=== PATIENT | female | born 1975 | race Caucasian/White ===

== ENCOUNTER 2016-07-03 12:31 | Emergency (ER) | payer MEDICAID ==
[2016-07-03] MEDS ORDERED: IPRATROPIUM/ALBUTEROL 3 ML DEYVIAL IH ONE ×2 (12:50→13:30)
[2016-07-03 12:59] LABS: % IMMATURE GRANULYOCYTES 0.4 % (0.0-1.1); ABSOLUTE IMMATURE GRANULOCYTES 0.04 10^3/uL (0.00-0.10); ADD DIFF? NO; ADD MORPH? NO; ADD SCAN? NO; ATYPICAL LYMPHOCYTE FLAG 0 (0-99); FRAGMENT RBC FLAG 0 (0-99); HEMATOCRIT 42.2 % (38.0-47.0); HEMOGLOBIN 13.8 g/dL (12.6-16.3); LEFT SHIFT FLG 0 (0-99); LIPEMIA HEMOLYSIS FLAG 80 (0-99); MEAN CELL HEMOGLOBIN 27.9 pg (27.9-34.1); MEAN CELL HEMOGLOBIN CONCENTR. 32.7 g/dL (32.4-36.7); MEAN CELL VOLUME 85.3 fL (81.5-99.8); MEAN PLATELET VOLUME 8.7 fL (8.7-11.7); PLATELET CLUMPS FLAG 20 (0-99); PLATELET COUNT 407 10^3/uL (150-400); RED BLOOD CELL COUNT 4.95 10^6/uL (4.18-5.33); RED CELL DISTRIBUTION WIDTH 16.3 % (11.5-15.2)
[2016-07-03 13:08] LABS: ANION GAP 10 mEq/L (8-16); CALCIUM 9.4 mg/dL (8.5-10.4); CARBON DIOXIDE 23 mEq/l (22-31); CHLORIDE 108 mEq/L (97-110); CREATININE 0.7 mg/dL (0.6-1.0); GLOMERULAR FILTRATION RATE > 60; GLUCOSE 98 mg/dL (70-100); POTASSIUM 3.9 mEq/L (3.5-5.2); SODIUM 141 mEq/L (134-144)
--- NOTE | 2016-07-03 13:27 | EDPHY ---
H & P Stated Complaint: SOB, Chest pain -3x days. Recent Diagnosis COPD Time Seen by Provider: 07/03/16 13:23 HPI/ROS: CHIEF COMPLAINT: Chest pain, shortness of breath, cough. HISTORY OF PRESENT ILLNESS: The patient is a 41-year-old female recently diagnosed with COPD who presents with chest pain and shortness of breath since last night. The shortness of breath is worsened with exertion and she is having difficulty walking short distances. She admits associated dry cough. She denies fever, nausea, abdominal pain. She denies lightheadedness, dizziness, or fainting. Patient states that she no longer has any of her medications that she was given for her COPD. She reports that she was diagnosed with COPD in [facility]. She had the same symptoms at that time. REVIEW OF SYSTEMS: Aside from elements discussed in the HPI, a comprehensive 10-point review of systems was reviewed and is negative. PAST MEDICAL HISTORY: Schizoaffective disorder, bipolar disorder, COPD. SOCIAL HISTORY: Here alone. VITAL SIGNS: Reviewed by me GENERAL: Well-developed, well-nourished, resting comfortably in no respiratory distress. HEENT: Atraumatic. Eyes: No icterus, no injection. Mouth: moist mucous membranes. No erythema or lesions. Neck: supple with no adenopathy. LUNGS: Hacking, wet cough. Wheezing throughout. No rhonchi or rales. CARDIAC: Regular rate and rhythm, no rubs, murmurs or gallops. ABDOMEN: Soft, nontender, nondistended, bowel sounds normal. BACK: No CVA tenderness. EXTREMITIES: No trauma. No edema. Range of motion is normal throughout. NEURO: Alert and oriented, grossly nonfocal. SKIN: Warm and dry, no rash. PSYCHIATRIC: Normal mentation, no agitation. Portions of this note were transcribed by a medical assistant supervisor. I personally performed a history, physical exam, medical decision making, and confirmed accuracy of information the transcribed note. Source: Patient Exam Limitations: No limitations - Personal History LMP (Females 10-55): Now Current Tetanus Diphtheria and Acellular Pertussis (TDAP): Yes Tetanus Vaccine Date: <10 years - Medical/Surgical History Hx Asthma: No Hx Chronic Respiratory Disease: Yes Hx Diabetes: No Hx Cardiac Disease: Yes Hx Renal Disease: No Hx Cirrhosis: No Hx Alcoholism: No Hx HIV/AIDS: No Hx Splenectomy or Spleen Trauma: No Other PMH: PMHx: Schizoaffective disorder, anxiety, depression, polysubstance abuse, PTSD, bipolar disorder, back problem, palpitations - Social History Smoking Status: Current every day smoker Constitutional: Initial Vital Signs Temperature (C) 36.6 C 07/03/16 12:37 Heart Rate 113 H 07/03/16 12:37 Respiratory Rate 20 07/03/16 12:37 Blood Pressure 121/94 H 07/03/16 12:37 O2 Sat (%) 94 07/03/16 12:37 O2 Delivery Mode Room Air Allergies/Adverse Reactions: prochlorperazine edisylate [From Compazine] Allergy (Intermediate, Verified 18:36) prochlorperazine maleate [From Compazine] Allergy (Intermediate, Verified 18:36) promethazine HCl [From Phenergan] Allergy (Intermediate, Verified 06/21/16 18:36 ) Home Medications: Medication Instructions Recorded LORazepam [Ativan (*)] 0.5 mg PO Q4 PRN 04/21/16 QUEtiapine FUMARATE [Seroquel 300 mg PO BID 04/21/16 300mg (*)] traZODone [traZODONE 50MG (*)] 50 mg PO BID 04/21/16 AZITHROMYCIN [Z-PACK] 250 - 500 mg PO DAILY #6 tab 07/03/16 Albuterol Hfa Anes Only [Proair 2 puffs IH QID #1 mdi 07/03/16 Hfa Anes Only] predniSONE [prednisone 10mg (RX)] 40 mg PO DAILY 3 Days 07/03/16 Medical Decision Making - Diagnostics Imaging: X-ray chest was obtained. I viewed the images myself on the PACS system. My interpretation of the images is: Query posterior infiltrate. The radiologist interpretation is pending at this time. I discussed the x-ray findings with the patient. ED Course/Re-evaluation: Chest x-ray and EKG ordered. An IV was established. 3ml IH DuoNeb administered. Patient's chest x-rays evaluated by the radiologist as demonstrating no focal infiltrate. Patient received a DuoNeb followed by 2 albuterol nebulizer treatments. She received Solu-Medrol 125 mg. On re-examination she is feeling better. She is moving better air and her wheezes have diminished. She is not hypoxic. Her O2 sat has tip slightly from initial arrival, presumably secondary to recent nebulizer treatments. She will be discharged with azithromycin, prednisone, and meter dose inhaler prescription. She understands the importance of compliance with this medication regiment and will follow up at [facility] as needed. Differential Diagnosis: Differential diagnosis for the patient's shortness of breath was considered including but not limited to pulmonary infectious processes, COPD exacerbation, pulmonary emboli, pulmonary edema, and influenza. - Data Points Laboratory Results: Laboratory Results 07/03/16 12:48 07/03/16 12:48 07/03/16 12:48 WBC 10.98 H 10^3/uL (3.80-9.50) RBC 4.95 10^6/uL (4.18-5.33) Hgb 13.8 g/dL (12.6-16.3) Hct 42.2 % (38.0-47.0) MCV 85.3 fL (81.5-99.8) MCH 27.9 pg (27.9-34.1) MCHC 32.7 g/dL (32.4-36.7) RDW 16.3 H % (11.5-15.2) Plt Count 407 H 10^3/uL (150-400) MPV 8.7 fL (8.7-11.7) Neut % (Auto) 71.9 % (39.3-74.2) Lymph % (Auto) 17.9 % (15.0-45.0) [place] % (Auto) 8.1 % (4.5-13.0) Eos % (Auto) 0.8 % (0.6-7.6) Baso % (Auto) 0.9 % (0.3-1.7) Nucleat RBC Rel Count 0.0 % (0.0-0.2) Absolute Neuts (auto) 7.89 H 10^3/uL (1.70-6.50) Absolute Lymphs (auto) 1.97 10^3/uL (1.00-3.00) Absolute Monos (auto) 0.89 H 10^3/uL (0.30-0.80) Absolute Eos (auto) 0.09 10^3/uL (0.03-0.40) Absolute Basos (auto) 0.10 10^3/uL (0.02-0.10) Absolute Nucleated RBC 0.00 10^3/uL (0-0.01) Immature Gran % 0.4 % (0.0-1.1) Immature Gran # 0.04 10^3/uL (0.00-0.10) D-Dimer < 0.27 ug/mLFEU (0.00-0.50) Sodium 141 mEq/L (134-144) Potassium 3.9 mEq/L (3.5-5.2) Chloride 108 mEq/L (97-110) Carbon Dioxide 23 mEq/l (22-31) Anion Gap 10 mEq/L (8-16) BUN 6 L mg/dL (7-23) Creatinine 0.7 mg/dL (0.6-1.0) Estimated GFR > 60 Glucose 98 mg/dL (70-100) Calcium 9.4 mg/dL (8.5-10.4) Medications Given: Discontinued Medications Albuterol (Proventil Neb) 3 ml IH EDNOW ONE Stop: 07/03/16 13:32 Last Admin: 07/03/16 13:42 Dose: Not Given Albuterol (Proventil Neb) 3 ml IH EDNOW ONE Stop: 07/03/16 13:32 Last Admin: 07/03/16 13:42 Dose: Not Given Albuterol/Ipratropium (Duoneb) 3 ml IH EDNOW ONE Stop: 07/03/16 12:51 Last Admin: 07/03/16 13:00 Dose: 3 ml Albuterol/Ipratropium (Duoneb) 6 ml IH EDNOW ONE Stop: 07/03/16 13:31 Last Admin: 07/03/16 13:48 Dose: 6 ml Methylprednisolone Sodium Succinate (Solu-Medrol) 125 mg IVP EDNOW ONE Stop: 07/03/16 13:32 Last Admin: 07/03/16 13:48 Dose: 125 mg Departure - Departure Disposition: Home, Routine, Self-Care Clinical Impression: Asthma exacerbation, Bronchitis Condition: Good Instructions: Acute Bronchitis (ED) Additional Instructions: Take Azithromycin and Prednisone as prescribed. Follow up with your primary care provider in the next 2-3 days if symptoms are not improving. Return to the emergency department if you experience serious worsening of condition. Referrals: Viky Ramsey PA [Primary Care Provider] - As per Instructions Prescriptions: Albuterol Hfa Anes Only [Proair Hfa Anes Only] 2 puffs IH QID #1 mdi AZITHROMYCIN [Z-PACK] 250 - 500 mg PO DAILY #6 tab predniSONE [prednisone 10mg (RX)] 40 mg PO DAILY 3 Days Report Scribed for: Moira Perry Report Scribed by: Jani Evans Date of Report: 07/03/16 Time of Report: 13:27
[2016-07-03] MEDS ORDERED: ALBUTEROL 3 ML DEYVIAL IH ONE ×2 (13:31)
[2016-07-03] MEDS ORDERED: methylPREDNISolone SOD SUCC 125 MG/2 ML VIAL IVP ONE (13:31)
--- NOTE | 2016-07-03 13:37 | DX ---
PA and Lateral Chest - July 03, 2016 Clinical Indications: Shortness of breath. July 03, 2016 at 1248 hours. Comparison: June 21, 2016. Findings: The lungs are clear, and no masses are found. The heart and pulmonary vessels are normal. There are no pleural effusions and no pneumothorax. The bones are unremarkable for this age. Impression: No acute cardiopulmonary process.
[2016-07-03 13:50] VITALS: RESP 16
[2016-07-03 15:19] VITALS: BP 121/77; PULSE 107; TEMP 98.8; O2SAT 90
--- NOTE | 2016-07-05 07:34 | CPEKG ---
Heart Rate: 111 RR Interval: 541 P-R Interval: 132 QRSD Interval: 68 QT Interval: 336 QTC Interval: 457 P Allgood: 80 QRS Allgood: 68 T Wave Allgood: 74 EKG Severity - OTHERWISE NORMAL ECG - EKG Impression: SINUS TACHYCARDIA Electronically Signed By: Ming Gonzalez 05-Jul-2016 21:10:15
== END 2016-07-03 15:19 | disposition home or self-care (01) ==
DX: J20.9 Acute bronchitis, unspecified (principal); J45.901 Unspecified asthma with (acute) exacerbation; J44.9 Chronic obstructive pulmonary disease, unspecified; F17.200 Nicotine dependence, unspecified, uncomplicated
CPT/HCPCS: 96374

== ENCOUNTER 2016-08-21 21:22 | Emergency (ER) | payer MEDICAID ==
[2016-08-21] MEDS ORDERED: LORazepam 2 MG/ML INJ ONE (21:29)
[2016-08-21] MEDS ORDERED: LORazepam 2 MG/ML INJ IVP ONE ×2 (21:34→22:13)
[2016-08-21 22:15] LABS: % IMMATURE GRANULYOCYTES 0.4 % (0.0-1.1); ABSOLUTE IMMATURE GRANULOCYTES 0.03 10^3/uL (0.00-0.10); ADD DIFF? NO; ADD MORPH? NO; ADD SCAN? NO; ATYPICAL LYMPHOCYTE FLAG 10 (0-99); FRAGMENT RBC FLAG 0 (0-99); HEMATOCRIT 38.4 % (38.0-47.0); HEMOGLOBIN 12.9 g/dL (12.6-16.3); LEFT SHIFT FLG 0 (0-99); LIPEMIA HEMOLYSIS FLAG 80 (0-99); MEAN CELL HEMOGLOBIN 28.4 pg (27.9-34.1); MEAN CELL HEMOGLOBIN CONCENTR. 33.6 g/dL (32.4-36.7); MEAN CELL VOLUME 84.6 fL (81.5-99.8); MEAN PLATELET VOLUME 8.9 fL (8.7-11.7); PLATELET CLUMPS FLAG 0 (0-99); PLATELET COUNT 299 10^3/uL (150-400); RED BLOOD CELL COUNT 4.54 10^6/uL (4.18-5.33); RED CELL DISTRIBUTION WIDTH 16.6 % (11.5-15.2)
[2016-08-21 22:22] LABS: ANION GAP 13 mEq/L (8-16); CALCIUM 9.5 mg/dL (8.5-10.4); CARBON DIOXIDE 19 mEq/l (22-31); CHLORIDE 106 mEq/L (97-110); CREATININE 0.7 mg/dL (0.6-1.0); ETHANOL SERUM 21 mg/dL (0-10); GLOMERULAR FILTRATION RATE > 60; GLUCOSE 88 mg/dL (70-100); POTASSIUM 3.7 mEq/L (3.5-5.2); SODIUM 138 mEq/L (134-144)
[2016-08-21 23:09] VITALS: RESP 16
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
[2016-08-22 07:55] VITALS: BP 97/80
[2016-08-22 16:32] VITALS: PULSE 108; TEMP 98.1; O2SAT 95
== END 2016-08-22 16:32 | disposition home or self-care (01) ==
LOC: EDUNIT#
DX: R44.3 Hallucinations, unspecified (principal); F17.200 Nicotine dependence, unspecified, uncomplicated
CPT/HCPCS: 80305; 96374; G0480

== ENCOUNTER 2016-08-23 09:56 | Emergency (ER) | payer MEDICAID ==
[2016-08-23] MEDS ORDERED: IPRATROPIUM/ALBUTEROL 3 ML DEYVIAL IH ONE ×2 (10:11→10:12)
[2016-08-23 10:12] VITALS: RESP 14; TEMP 98.4
--- NOTE | 2016-08-23 10:13 | EDPHY ---
H & P Stated Complaint: Shortness of breath, cough HPI/ROS: CHIEF COMPLAINT: cough, shortness of breath HISTORY OF PRESENT ILLNESS: cough and shortness of breath started yesterday after being here at this facility. SHe notes that it is painful, productive cough. SHe is difficult to obtain history from as she is not fully cooperate with my questions. SHe seems to be agitated about her symptoms but not combative. SHe says that she has been coughing and has shortness of breath. The painful cough. Worse when lying down. Still smoking but smoking less. No fever. Some chills. No chest pain at rest. No nausea or vomiting. She will not provide any other information regarding predict ability of modifying factors or any other associated complaints. REVIEW OF SYSTEMS: Ten systems reviewed and are negative unless otherwise noted in the HPI EXAMINATION General Appearance: Alert, no distress , unkempt Head: normocephalic, atraumatic Eyes: Pupils equal and round, no conjunctival pallor or injection ENT, Mouth: Mucous membranes moist. Uvula midline. Neck: Normal inspection, supple, non-tender Respiratory: Scattered rhonchi that are mild. NO crackles. NO diminishment. NO distress. Cardiovascular: Regular rate and rhythm . No murmur. Pulses intact distally. Gastrointestinal: Obese abdomen that is soft and nontender Back: non-tender, no bony abnormalities Neurological: A&O, nonfocal Skin: Warm and dry, no rash Extremities: Nontender, no pedal edema Psychiatric: Mood and affect normal DIFFERENTIAL DIAGNOSES: Including but not limited to bronchitis, pneumonia, cough, COPD, chronic cough MDM: 10:12 a.m. cough and shortness of breath with rhonchi and breath sounds consistent with her smoking status. SHe has 96-98% oxygenation on room air. She is hemodynamically stable. NO chest pain. Subjective fever. No body aches but she does have some chills. Chest x-ray has been ordered to rule out pneumonia. I do not suspect pneumonia by auscultation. We will also administer another DuoNeb treatment. patient is significantly improved after DuoNeb treatment and CV and albuterol. Chest x-ray does not reveal any pneumonia. I will treat her with a dose of Decadron for likely bronchitis. DIscussed the likely viral nature of her illness. Also discussed smoking cessation. Discharge home with follow-up with primary care physician. Return to ER for any chest pain. SUPERVISION: patient was evaluated independently of the supervising physician Source: Patient Exam Limitations: No limitations - Personal History Tetanus Vaccine Date: <10 years - Medical/Surgical History Hx Asthma: No Hx Chronic Respiratory Disease: Yes Hx Diabetes: No Hx Cardiac Disease: Yes Hx Renal Disease: No Hx Cirrhosis: No Hx Alcoholism: No Hx HIV/AIDS: No Hx Splenectomy or Spleen Trauma: No Other PMH: PMHx: Schizoaffective disorder, anxiety, depression, polysubstance abuse, PTSD, bipolar disorder, back problem, palpitations - Social History Smoking Status: Current every day smoker Constitutional: Initial Vital Signs Temperature (C) 98.4 F 08/23/16 10:07 Heart Rate 95 08/23/16 10:07 Respiratory Rate 14 08/23/16 10:07 Blood Pressure 109/68 08/23/16 10:07 O2 Sat (%) 92 08/23/16 10:07 O2 Delivery Mode Room Air Allergies/Adverse Reactions: prochlorperazine edisylate [From Compazine] Allergy (Intermediate, Verified 21:56) prochlorperazine maleate [From Compazine] Allergy (Intermediate, Verified 21:56) promethazine HCl [From Phenergan] Allergy (Intermediate, Verified 08/21/16 21:56 ) Home Medications: Medication Instructions Recorded LORazepam [Ativan (*)] 0.5 mg PO Q4 PRN 04/21/16 QUEtiapine FUMARATE [Seroquel 300 mg PO BID 04/21/16 300mg (*)] traZODone [traZODONE 50MG (*)] 50 mg PO BID 04/21/16 Albuterol Hfa Anes Only [Proair 2 puffs IH QID #1 mdi 07/03/16 Hfa Anes Only] Medical Decision Making - Data Points Medications Given: Discontinued Medications Albuterol (Proventil Neb) 18 ml IH CONT ONE Stop: 08/23/16 10:40 Last Admin: 08/23/16 10:41 Dose: 18 ml Albuterol/Ipratropium (Duoneb) 3 ml IH EDNOW ONE Stop: 08/23/16 10:12 Last Admin: 08/23/16 10:17 Dose: 3 ml Albuterol/Ipratropium (Duoneb) 3 ml IH EDNOW ONE Stop: 08/23/16 10:13 Last Admin: 08/23/16 10:18 Dose: Not Given Dexamethasone (Decadron Intensol) 8 mg PO EDNOW ONE Stop: 08/23/16 11:46 Last Admin: 08/23/16 12:07 Dose: 8 mg Departure - Departure Disposition: Home, Routine, Self-Care Clinical Impression: Shortness of breath, Cough Acute bronchitis Qualifiers: Bronchitis organism: unspecified organism Qualified Code(s): J20.9 - Acute bronchitis, unspecified Condition: Good Instructions: How to Stop Smoking (ED), Acute Bronchitis (ED) Additional Instructions: Follow-up with [facility]. Recommend smoking cessation Referrals: Patient,NotPresent [Unknown] - As per Instructions [facility],. [Clinic] - As per Instructions
[2016-08-23] MEDS ORDERED: ALBUTEROL 3 ML DEYVIAL ONE (10:33)
[2016-08-23] MEDS ORDERED: ALBUTEROL 3 ML DEYVIAL IH ONE (10:39)
[2016-08-23] MEDS ORDERED: DEXAMETHASONE 1 MG/ML 30 ML BOTTLE PO ONE (11:45)
[2016-08-23] MEDS ORDERED: DEXAMETHASONE 4 MG TAB ONE (11:59)
[2016-08-23 12:11] VITALS: BP 132/78; PULSE 70; O2SAT 94
== END 2016-08-23 12:10 | disposition home or self-care (01) ==
LOC: EDUNIT#
DX: J20.9 Acute bronchitis, unspecified (principal); F17.200 Nicotine dependence, unspecified, uncomplicated

== ENCOUNTER 2016-08-23 19:48 | Emergency (ER) | payer MEDICAID ==
[2016-08-23 19:53] VITALS: PULSE 104; RESP 20; TEMP 97.7
[2016-08-23 20:27] LABS: % IMMATURE GRANULYOCYTES 0.4 % (0.0-1.1); ABSOLUTE IMMATURE GRANULOCYTES 0.02 10^3/uL (0.00-0.10); ADD DIFF? NO; ADD MORPH? NO; ADD SCAN? NO; ATYPICAL LYMPHOCYTE FLAG 10 (0-99); FRAGMENT RBC FLAG 0 (0-99); HEMOGLOBIN 13.4 g/dL (12.6-16.3); LEFT SHIFT FLG 0 (0-99); LIPEMIA HEMOLYSIS FLAG 80 (0-99); MEAN CELL HEMOGLOBIN 28.3 pg (27.9-34.1); MEAN CELL HEMOGLOBIN CONCENTR. 32.7 g/dL (32.4-36.7); MEAN CELL VOLUME 86.7 fL (81.5-99.8); MEAN PLATELET VOLUME 8.7 fL (8.7-11.7); PLATELET CLUMPS FLAG 0 (0-99); PLATELET COUNT 342 10^3/uL (150-400); RED BLOOD CELL COUNT 4.73 10^6/uL (4.18-5.33); RED CELL DISTRIBUTION WIDTH 16.6 % (11.5-15.2)
[2016-08-23 20:39] LABS: ANION GAP 11 mEq/L (8-16); CALCIUM 9.8 mg/dL (8.5-10.4); CARBON DIOXIDE 19 mEq/l (22-31); CHLORIDE 108 mEq/L (97-110); CREATININE 0.6 mg/dL (0.6-1.0); GLOMERULAR FILTRATION RATE > 60; GLUCOSE 162 mg/dL (70-100); SALICYLATE < 1.0 mg/dL (2.0-20.0); SODIUM 138 mEq/L (134-144)
--- NOTE | 2016-08-23 22:34 | EDPHY ---
Mental Health General Narrative: CHIEF COMPLAINT: medical clearance for inpatient psychiatric treatment HISTORY OF PRESENT ILLNESS: 41-year-old female presents to the emergency department by taxi sent by the [facility]. Patient has had a mental health evaluation and has been accepted at [facility]. They are sending the patient here for specific labs requested by [facility]. Patient has a history of schizophrenia. She denies suicidal ideations, homicidal ideations. She reports auditory hallucinations. Patient was seen in the emergency department yesterday and diagnosed with a bronchitis. She denies fevers or chills, no chest pain. REVIEW OF SYSTEMS: A comprehensive 10 point review of systems is otherwise negative aside from elements mentioned in the history of present illness. Physical Exam Gen: Alert and Oriented, NAD HEENT: PERRL, moist mucous membranes NECK: no meningismus CV: regular rate and regular rhythm PULM: CTAB, no wheezes ABDOMEN: Obese, soft, non tender to palpation, BS present BACK: No CVA tenderness NEURO: Neurologically grossly intact EXTREMITIES: normal appearing SKIN: no rash or break in skin on exposed skin PSYCH: Flat affect, denies suicidal ideations, homicidal ideations. Reports auditory hallucinations. Previous Psychiatric History: previous inpatient psychiatric admission, schizophrenia, bipolar, PTSD Smoking Status: Current every day smoker Medical Decision Making: Lab tests are done that were requested by [facility]. Patient is discharged in sent via taxi back to [facility]. Course: patient remained stable over course of my shift - Objective Vital Signs: Initial Vital Signs Temperature (C) 36.5 C 08/23/16 19:52 Heart Rate 104 H 08/23/16 19:52 Respiratory Rate 20 08/23/16 19:52 Blood Pressure 122/81 H 08/23/16 19:52 O2 Sat (%) 93 08/23/16 19:52 O2 Delivery Mode Room Air Allergies/Adverse Reactions: prochlorperazine edisylate [From Compazine] Allergy (Intermediate, Verified 21:56) prochlorperazine maleate [From Compazine] Allergy (Intermediate, Verified 21:56) promethazine HCl [From Phenergan] Allergy (Intermediate, Verified 08/21/16 21:56 ) Home Medications: Medication Instructions Recorded LORazepam [Ativan (*)] 0.5 mg PO Q4 PRN 04/21/16 QUEtiapine FUMARATE [Seroquel 300 mg PO BID 04/21/16 300mg (*)] traZODone [traZODONE 50MG (*)] 50 mg PO BID 04/21/16 Albuterol Hfa Anes Only [Proair 2 puffs IH QID #1 mdi 07/03/16 Hfa Anes Only] Laboratory Results: Laboratory Results 08/23/16 20:15 08/23/16 20:15 08/23/16 08/23/16 20:15 20:15 WBC 5.69 10^3/uL 10^3/uL (3.80-9.50) RBC 4.73 10^6/uL 10^6/uL (4.18-5.33) Hgb 13.4 g/dL g/dL (12.6-16.3) Hct 41.0 % % (38.0-47.0) MCV 86.7 fL fL (81.5-99.8) MCH 28.3 pg pg (27.9-34.1) MCHC 32.7 g/dL g/dL (32.4-36.7) RDW 16.6 % H % (11.5-15.2) Plt Count 342 10^3/uL 10^3/uL (150-400) MPV 8.7 fL fL (8.7-11.7) Neut % (Auto) 87.9 % H % (39.3-74.2) Lymph % (Auto) 10.0 % L % (15.0-45.0) [place] % (Auto) 1.2 % L % (4.5-13.0) Eos % (Auto) 0.0 % L % (0.6-7.6) Baso % (Auto) 0.5 % % (0.3-1.7) Nucleat RBC Rel Count 0.0 % % (0.0-0.2) Absolute Neuts (auto) 5.00 10^3/uL 10^3/uL (1.70-6.50) Absolute Lymphs (auto) 0.57 10^3/uL L 10^3/uL (1.00-3.00) Absolute Monos (auto) 0.07 10^3/uL L 10^3/uL (0.30-0.80) Absolute Eos (auto) 0.00 10^3/uL L 10^3/uL (0.03-0.40) Absolute Basos (auto) 0.03 10^3/uL 10^3/uL (0.02-0.10) Absolute Nucleated RBC 0.00 10^3/uL 10^3/uL (0-0.01) Immature Gran % 0.4 % % (0.0-1.1) Immature Gran # 0.02 10^3/uL 10^3/uL (0.00-0.10) Sodium 138 mEq/L mEq/L (134-144) Potassium 4.0 mEq/L mEq/L (3.5-5.2) Chloride 108 mEq/L mEq/L (97-110) Carbon Dioxide 19 mEq/l L mEq/l (22-31) Anion Gap 11 mEq/L mEq/L (8-16) BUN 7 mg/dL mg/dL (7-23) Creatinine 0.6 mg/dL mg/dL (0.6-1.0) Estimated GFR > 60 Glucose 162 mg/dL H mg/dL (70-100) Calcium 9.8 mg/dL mg/dL (8.5-10.4) TSH 0.273 uIU/mL L uIU/mL (0.465-4.680) Salicylates < 1.0 mg/dL L mg/dL (2.0-20.0) Acetaminophen < 10 mcg/mL L mcg/mL (10.0-30.0) Ethyl Alcohol Cancelled Departure - Departure Disposition: Home, Routine, Self-Care Clinical Impression: Schizoaffective disorder Condition: Good Instructions: Schizoaffective Disorder (ED) Additional Instructions: Follow-up per [facility] recommendations. Referrals: [facility],. [Clinic] - As per Instructions
[2016-08-23 23:30] VITALS: BP 145/93; O2SAT 90
== END 2016-08-23 23:31 | disposition home or self-care (01) ==
DX: F25.9 Schizoaffective disorder, unspecified (principal); F17.200 Nicotine dependence, unspecified, uncomplicated
CPT/HCPCS: G0480

== ENCOUNTER 2016-08-24 10:42 | Observation (INO) | payer MEDICAID ==
[2016-08-24] MEDS ORDERED: IPRATROPIUM/ALBUTEROL 3 ML DEYVIAL ONE (10:59)
[2016-08-24] MEDS ORDERED: IPRATROPIUM/ALBUTEROL 3 ML DEYVIAL IH ONE ×2 (11:00→11:02)
[2016-08-24] MEDS ORDERED: methylPREDNISolone SOD SUCC 125 MG/2 ML VIAL IVP ONE (11:05)
--- NOTE | 2016-08-24 11:08 | EDPHY ---
H & P Smoking Status: Current every day smoker Time Seen by Provider: 08/24/16 10:54 HPI/ROS: CHIEF COMPLAINT: Cough, difficulty breathing HISTORY OF PRESENT ILLNESS: 41-year-old female presents to the emergency department complaining of ongoing cough and difficulty breathing over last few days. Patient was diagnosed with pneumonia 2 weeks ago was admitted to the hospital for 1 week. She was discharged. She is homeless and feels that she has recurring illness all over again. She was seen in the hospital on August 21, 2016 and yesterday, August 23, 2016 and was diagnosed with bronchitis. She had a negative chest x-ray yesterday which showed no evidence of obvious consolidation or infiltrate. She was given 8 mg of Decadron p.o. yesterday. Afebrile. She continues to smoke. REVIEW OF SYSTEMS: Constitutional: No fever, no chills. Eyes: No double or blurry vision. ENT: No sore throat. Respiratory: Cough, shortness of breath Cardiac: No chest pain. Gastrointestinal: No abdominal pain, vomiting or diarrhea. Genitourinary: No dysuria. Musculoskeletal: No neck or back pain. Skin: No rashes. Neurological: No headache. (Pooja Orr) Past Medical/Surgical History: Chronic smoker, schizoaffective disorder, anxiety, PTSD, substance abuse (Pooja Orr) Social History: Homeless (Pooja Orr) Physical Exam: General Appearance: Alert, moderate distress. 87% on room air, 36.9, 132/89 Eyes: Pupils equal and round. Extraocular motions are all intact. ENT: Mouth: Mucous membranes moist. Respiratory: Diffuse expiratory wheezing throughout. Cardiovascular: Regular rate and rhythm. Gastrointestinal: Abdomen is soft and nontender, no masses, no rebound or guarding, bowel sounds normal. Neurological: Alert and oriented x 3, cranial nerves II through XII grossly intact Skin: Warm and dry, no rashes. Musculoskeletal: Nontender to palpate along the cervical, thoracic or lumbar spine. Neck is supple. Extremities: Full range of motion and no peripheral edema. Psychiatric: Patient is oriented X 3, there is no agitation. (Pooja Orr) Constitutional: Initial Vital Signs Temperature (C) 36.9 C 08/24/16 10:52 Heart Rate 91 08/24/16 10:52 Respiratory Rate 20 08/24/16 10:52 Blood Pressure 132/89 H 08/24/16 10:52 O2 Sat (%) 87 L 08/24/16 10:52 O2 Delivery Mode Room Air O2 (L/minute) 2 Allergies/Adverse Reactions: prochlorperazine edisylate [From Compazine] Allergy (Intermediate, Verified 21:56) prochlorperazine maleate [From Compazine] Allergy (Intermediate, Verified 21:56) promethazine HCl [From Phenergan] Allergy (Intermediate, Verified 08/21/16 21:56 ) Home Medications: Medication Instructions Recorded LORazepam [Ativan (*)] 0.5 mg PO Q4 PRN 04/21/16 QUEtiapine FUMARATE [Seroquel 300 mg PO HS 04/21/16 300mg (*)] traZODone [traZODONE 50MG (*)] 50 mg PO HS 04/21/16 Albuterol Hfa Anes Only [Proair 2 puffs IH QID PRN 08/24/16 Hfa Anes Only] Medical Decision Making ED Course/Re-evaluation: 41-year-old homeless female presents to the emergency department with ongoing cough and shortness of breath. Patient had negative chest x-ray yesterday. She returns now to the emergency department for the 3rd time in the last 3 days with respiratory distress. She has no true saturation 87% with diffuse expiratory wheezing throughout. She was given albuterol nebulizer by EMS and was given DuoNeb in the emergency department. Patient required an additional albuterol nebulizer. The expiratory wheezing improved although however did not resolved. She was given 125 mg of IV Solu- Medrol. Influenza was negative. This patient is homeless. This is her 3rd visit to the emergency department with respiratory complaint. She had an O2 saturation of 87%. She has required multiple nebulized albuterol and DuoNeb. Patient will be admitted to the [facility] to Dr. Jerome Prado. (Pooja Orr) Differential Diagnosis: Including but not limited to bronchitis, pneumonia, COPD, influenza (Pooja Orr) Other Provider: The patient was evaluated and managed by the Physician [employer]/ Nurse Practitioner. My co-signature indicates that I have reviewed this chart and I agree with the findings and plan of care as documented. I am the secondary supervising physician. (Moira Perry) - Data Points Laboratory Results: Laboratory Results 08/24/16 11:00 08/24/16 11:00 08/24/16 08/24/16 11:00 11:00 WBC 7.60 10^3/uL 10^3/uL (3.80-9.50) RBC 4.73 10^6/uL 10^6/uL (4.18-5.33) Hgb 13.5 g/dL g/dL (12.6-16.3) Hct 41.0 % % (38.0-47.0) MCV 86.7 fL fL (81.5-99.8) MCH 28.5 pg pg (27.9-34.1) MCHC 32.9 g/dL g/dL (32.4-36.7) RDW 16.7 % H % (11.5-15.2) Plt Count 373 10^3/uL 10^3/uL (150-400) MPV 9.0 fL fL (8.7-11.7) Neut % (Auto) 76.5 % H % (39.3-74.2) Lymph % (Auto) 14.7 % L % (15.0-45.0) Kimball % (Auto) 8.2 % % (4.5-13.0) Eos % (Auto) 0.0 % L % (0.6-7.6) Baso % (Auto) 0.1 % L % (0.3-1.7) Nucleat RBC Rel Count 0.0 % % (0.0-0.2) Absolute Neuts (auto) 5.81 10^3/uL 10^3/uL (1.70-6.50) Absolute Lymphs (auto) 1.12 10^3/uL 10^3/uL (1.00-3.00) Absolute Monos (auto) 0.62 10^3/uL 10^3/uL (0.30-0.80) Absolute Eos (auto) 0.00 10^3/uL L 10^3/uL (0.03-0.40) Absolute Basos (auto) 0.01 10^3/uL L 10^3/uL (0.02-0.10) Absolute Nucleated RBC 0.00 10^3/uL 10^3/uL (0-0.01) Immature Gran % 0.5 % % (0.0-1.1) Immature Gran # 0.04 10^3/uL 10^3/uL (0.00-0.10) Sodium 143 mEq/L mEq/L (134-144) Potassium 4.2 mEq/L mEq/L (3.5-5.2) Chloride 112 mEq/L H mEq/L (97-110) Carbon Dioxide 21 mEq/l L mEq/l (22-31) Anion Gap 10 mEq/L mEq/L (8-16) BUN 6 mg/dL L mg/dL (7-23) Creatinine 0.6 mg/dL mg/dL (0.6-1.0) Estimated GFR > 60 Glucose 101 mg/dL H mg/dL (70-100) Calcium 9.4 mg/dL mg/dL (8.5-10.4) Medications Given: Discontinued Medications Albuterol (Proventil Neb) 3 ml IH EDNOW ONE Stop: 08/24/16 11:54 Last Admin: 08/24/16 11:55 Dose: 3 ml Albuterol/Ipratropium (Duoneb) 3 ml IH EDNOW ONE Stop: 08/24/16 11:03 Last Admin: 08/24/16 11:08 Dose: 3 ml Albuterol/Ipratropium (Duoneb) 3 ml IH EDNOW ONE Stop: 08/24/16 11:01 Last Admin: 08/24/16 11:09 Dose: 3 ml Lorazepam (Ativan) 1 mg PO EDNOW ONE Stop: 08/24/16 11:36 Last Admin: 08/24/16 11:36 Dose: 1 mg Methylprednisolone Sodium Succinate (Solu-Medrol) 125 mg IVP EDNOW ONE Stop: 08/24/16 11:06 Last Admin: 08/24/16 11:09 Dose: 125 mg Departure - Departure Disposition: [facility] Acute Clinical Impression: Hypoxia, Bronchitis, Smoker Condition: Fair
[2016-08-24] MEDS ORDERED: LORazepam 1 MG TAB ONE (11:28)
[2016-08-24 11:30] LABS: % IMMATURE GRANULYOCYTES 0.5 % (0.0-1.1); ABSOLUTE IMMATURE GRANULOCYTES 0.04 10^3/uL (0.00-0.10); ADD DIFF? NO; ADD MORPH? NO; ADD SCAN? NO; ATYPICAL LYMPHOCYTE FLAG 0 (0-99); FRAGMENT RBC FLAG 0 (0-99); HEMOGLOBIN 13.5 g/dL (12.6-16.3); LEFT SHIFT FLG 0 (0-99); LIPEMIA HEMOLYSIS FLAG 80 (0-99); MEAN CELL HEMOGLOBIN 28.5 pg (27.9-34.1); MEAN CELL HEMOGLOBIN CONCENTR. 32.9 g/dL (32.4-36.7); MEAN CELL VOLUME 86.7 fL (81.5-99.8); PLATELET CLUMPS FLAG 0 (0-99); PLATELET COUNT 373 10^3/uL (150-400); RED BLOOD CELL COUNT 4.73 10^6/uL (4.18-5.33); RED CELL DISTRIBUTION WIDTH 16.7 % (11.5-15.2)
[2016-08-24] MEDS ORDERED: LORazepam 1 MG TAB PO ONE (11:35)
[2016-08-24 11:44] LABS: ANION GAP 10 mEq/L (8-16); CALCIUM 9.4 mg/dL (8.5-10.4); CARBON DIOXIDE 21 mEq/l (22-31); CHLORIDE 112 mEq/L (97-110); CREATININE 0.6 mg/dL (0.6-1.0); GLOMERULAR FILTRATION RATE > 60; GLUCOSE 101 mg/dL (70-100); POTASSIUM 4.2 mEq/L (3.5-5.2); SODIUM 143 mEq/L (134-144)
[2016-08-24] MEDS ORDERED: ALBUTEROL 3 ML DEYVIAL IH ONE (11:53)
[2016-08-24] MEDS ORDERED: oxyCODONE IR 5 MG TAB PO PRN (13:00)
[2016-08-24] MEDS ORDERED: ALBUTEROL 3 ML DEYVIAL IH PRN (13:00)
[2016-08-24] MEDS ORDERED: ACETAMINOPHEN 325 MG TAB PO PRN (13:00)
[2016-08-24] MEDS ORDERED: LORazepam 0.5 MG TAB PO PRN (13:00)
[2016-08-24] MEDS ORDERED: ONDANSETRON DISINTEGRATING 4 MG TAB PO PRN (13:00)
--- NOTE | 2016-08-24 13:27 | GHP ---
DATE OF ADMISSION: 08/24/2016 CHIEF COMPLAINT: Bronchitis. HISTORY OF PRESENT ILLNESS: This is a 41-year-old homeless female who presents for the third time i n 2 days to the ER for cough. This started a couple weeks ago. It has progressively gotten worse. She has production of clear sputum. No hemoptysis. She has had chest pain since July in the le ft back side. She tells me that she was evaluated for this at [facility] with a CT scan, kaylan d there was an abnormality there but received no followup. She has had a few fevers. She has felt very short of breath and has had some wheezing. She smoked a half pack a day for the past 28 years. She has been on oxygen in the past but has never needed it permanently. In the emergency department, she is hypoxic on room air. Per report, improved with nebulizers. PAST MEDICAL/SURGICAL HISTORY: 1. Anxiety. 2. Schizoaffective disorder. 3. History of reactive airways disease. MEDICATIONS: Please see medication reconciliation. ALLERGIES: Compazine and Phenergan. FAMILY HISTORY: No lung disease. SOCIAL HISTORY: She is homeless. She occasionally drinks alcohol. She smokes, as above. REVIEW OF SYSTEMS: Ten-point review of systems is conducted and is negative, except per HPI. PHYSICAL EXAM: VITAL SIGNS: Blood pressure is 132/89. Heart rate when I saw her was about 115, re spiration rate 20, saturating at 87% on room air. Temperature is 36.9. GENERAL: The patient is a pleasant female who appears in moderate respiratory distress. HEENT: Normocephalic, atraumatic. C ARDIOVASCULAR: Tachycardic. There are no murmurs, rubs, or gallops. PULMONARY: Exam shows diffus e coarse rhonchi, as well as expiratory wheezes. She has prolonged expiratory phase. ABDOMEN: Sof t, nontender, nondistended. SKIN: No rash. : No Villalp[place]. NEUROLOGIC: Alert and oriented x3. S he is moving all extremities. PSYCHIATRIC: Normal mood and affect. LABS: White count is normal. D-dimer 0.4. Basic metabolic panel is normal. Influenza DFA is nega tive for the flu. DATA: 1. I reviewed her chart. 2. I personally viewed and interpreted her chest x-ray from yesterday. This is normal. IMPRESSION/PLAN: A 41-year-old female presents with reactive airways flare. 1. Acute respiratory failure due to reactive airways disease: She is currently requiring oxygen. I will give her prednisone, as well as azithromycin. Unclear if this represents a true bacterial br onchitis at this point. Her D-dimer is negative. She had a chest x-ray yesterday, which was relati vely unremarkable. What she describes as chest pain is more similar actually to sharp back pain, wh ich has been previously evaluated. Would not pursue pulmonary embolism at this point with a negativ e D-dimer. 2. History of schizoaffective disorder: Given her Ativan as needed. Will continue her home meds. Watch for flare of this on steroids. /[id number]/MODL
[2016-08-24] MEDS: predniSONE 20 MG TAB PO SCH (14:36)
[2016-08-24] MEDS: AZITHROMYCIN 250 MG TAB PO SCH (14:36)
[2016-08-24] MEDS: IPRATROPIUM/ALBUTEROL 3 ML DEYVIAL IH SCH ×2 (15:00→21:07)
[2016-08-24] MEDS: LORazepam 0.5 MG TAB PO PRN (17:04)
[2016-08-24] MEDS ORDERED: traZODone 50 MG TAB PO SCH (21:00)
[2016-08-24] MEDS ORDERED: QUEtiapine FUMARATE 300 MG TAB PO SCH (21:00)
[2016-08-25] MEDS: IPRATROPIUM/ALBUTEROL 3 ML DEYVIAL IH SCH ×2 (05:59→10:43)
[2016-08-25] MEDS: predniSONE 20 MG TAB PO SCH (10:02)
[2016-08-25] MEDS: AZITHROMYCIN 250 MG TAB PO SCH (10:02)
--- NOTE | 2016-08-25 10:04 | HOSPPROG ---
Hospitalist Progress Note Assessment/Plan: 41 yo F w reactive airway disease exacerbation RAD: on pred, naty lin i have advised smoking cessation hypoxemia: currently on RA check ambulatory RA sat dispo: home if ambulatory sat OK Subjective: states she still feels sick. on RA Objective: Vital Signs Temp Pulse Resp BP Pulse Ox 36.0 C 92 19 119/79 90 L 08/25/16 08:00 08/25/16 08:00 08/25/16 08:00 08/25/16 08:00 08/25/16 08:00 08/24/16 08/25/16 08/26/16 05:59 05:59 05:59 Intake Total 220 Balance 220 - Physical Exam Constitutional: no apparent distress, appears nourished Eyes: PERRL, anicteric sclera Ears, Nose, Mouth, Throat: moist mucous membranes, hearing normal Cardiovascular: regular rate and rhythym, no murmur, rub, or gallop, No tachycardia Respiratory: other (good air movement, jonathan erhonchi, few wheezes) Gastrointestinal: normoactive bowel sounds, soft, non-tender abdomen Genitourinary: No ferreira in urethra Skin: warm, normal color Musculoskeletal: full muscle strength, no muscle tenderness Neurologic: AAOx3, sensation intact bilaterally ICD10 Worksheet Patient Problems: Problems Problem Status Onset Bronchitis Acute Hypoxia Acute Smoker Acute Amphetamine dependence Active Acute bronchitis Acute Allergies to PROCHLORPERAZINE & PROMETHAZINE Acute Bronchitis Acute Cannabis dependence Acute Nicotine dependence Acute Obesity Acute Suicidal ideation Acute
[2016-08-25] MEDS: LORazepam 0.5 MG TAB PO PRN (10:18)
[2016-08-25 10:52] VITALS: RESP 18
[2016-08-25 11:48] VITALS: BP 94/59; PULSE 99; TEMP 97.4; O2SAT 90
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
== END 2016-08-25 14:40 | disposition home or self-care (01) ==
LOC: EDUNIT# → F1N 13:16
PROVIDERS: ADMIT Student in an Organized Health Care Education/Training Program; ATTEND Internal Medicine
DX: J45.901 Unspecified asthma with (acute) exacerbation (principal); J20.9 Acute bronchitis, unspecified; R09.02 Hypoxemia; F25.9 Schizoaffective disorder, unspecified; F41.9 Anxiety disorder, unspecified; Z59.0 Homelessness; F17.210 Nicotine dependence, cigarettes, uncomplicated
CPT/HCPCS: G0378 ×2; 96374

== ENCOUNTER 2018-01-04 05:28 | Inpatient (IN) | payer MEDICAID ==
[2018-01-04 06:50] LABS: PLATELET COUNT 426 10^3/uL (150-400)
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
[2018-01-04] MEDS ORDERED: IOPAMIDOL (ISOVUE-300) 100 ML BTL ONE (08:55)
[2018-01-04] MEDS ORDERED: HEPARIN 10,000 UNIT/10 ML MDV (1,000 UNIT/ML) IVP ONE (10:51)
[2018-01-04] MEDS ORDERED: HEPARIN/DEXTROSE 500 ML IV ONE (10:51)
[2018-01-04 12:04] LABS: INR 1.03 (0.83-1.16); PROTIME(PATIENT) 13.7 SEC (12.0-15.0)
[2018-01-04] MEDS ORDERED: HYDROmorphONE/DILAUDID 1 MG/ML INJ IVP PRN (13:53)
[2018-01-04] MEDS ORDERED: ACETAMINOPHEN 325 MG TAB PO PRN (13:53)
[2018-01-04] MEDS ORDERED: LORazepam 1 MG TAB PO PRN (13:56)
--- NOTE | 2018-01-04 14:34 | PDGENHP ---
History and Physical - Chief Complaint abdominal pain - History of Present Illness 42 yo homeless female with h/o schizophrenia vs schizoaffective presents to the ED with abdominal pain. She is not a reliable historian. She reports diffuse abdominal pain for several days which she thinks is caused by snake eggs. She denies any ingestion. She denies fevers or chills. No nausea or vomiting. No CP or SOB. In the ED, CT revealed SMV thrombosis. She is started on heparin drip and admitted to the hospital for further management. History Information - Allergies/Home Medication List Allergies/Adverse Reactions: No Known Allergies Allergy (Unverified 01/04/18 11:22) Home Medications: LORazepam [Ativan (*)] 0.5 mg PO DAILY PRN 04/21/16 [Last Taken 01/03/18] QUEtiapine FUMARATE [Seroquel 300mg (*)] 300 mg PO HS 04/21/16 [Last Taken 01/03] Albuterol [Proventil Inhaler HFA (*)] 1 - 2 puffs IH Q4H PRN 01/04/18 [Last Taken Unknown] Fluticasone Hfa 110 Mcg [Flovent 110 MCG Hfa MDI (*)] 1 puffs IH BID 01/04/18 [ Last Taken 01/03/18] chlorproMAZINE HCL [Chlorpromazine HCl] 50 mg PO DAILY 01/04/18 [Last Taken 10/18] chlorproMAZINE HCL [Chlorpromazine HCl] 100 mg PO HS 01/04/18 [Last Taken ] I have personally reviewed and updated: family history, medical history, social history, surgical history - Past Medical History Additional medical history: Schizophrenia. H/O tobacco abuse. Anxiety. RAD - Surgical History Additional surgical history: . john paul-colectomy - Family History Positive for: non-pertinent - Social History Smoking Status: Current every day smoker Alcohol Use: None Drug Use: Marijuana Additional social history: Homeless, sometimes stays with a friend. Gives h/o drug use, "speed", occasional marijuana. Denies IVDA. Review of Systems Review of Systems: ROS: 10pt was reviewed & negative except for what was stated in HPI & below Physical Exam Physical Exam: Temp Pulse Resp BP Pulse Ox 36.8 C 80 10 L 137/78 H 94 07/05/18 13:49 01/04/18 13:49 01/04/18 13:49 01/04/18 13:49 01/04/18 13:49 Constitutional: no apparent distress Eyes: PERRL Ears, Nose, Mouth, Throat: moist mucous membranes Cardiovascular: regular rate and rhythym Respiratory: no respiratory distress, clear to auscultation Gastrointestinal: normoactive bowel sounds, soft, non-tender abdomen, other (no r/r/g) Skin: warm Musculoskeletal: full muscle strength Psychiatric: poor insight, poor judgement, poor memory Lab Data & Imaging Review 01/04/18 06:43 01/04/18 06:20 WBC 11.49 10^3/uL (3.80-9.50) H 01/04/18 06:43 RBC 4.92 10^6/uL (4.18-5.33) 01/04/18 06:43 Hgb 14.7 g/dL (12.6-16.3) 01/04/18 06:43 Hct 43.7 % (38.0-47.0) 01/04/18 06:43 MCV 88.8 fL (81.5-99.8) 01/04/18 06:43 MCH 29.9 pg (27.9-34.1) 01/04/18 06:43 MCHC 33.6 g/dL (32.4-36.7) 01/04/18 06:43 RDW 17.5 % (11.5-15.2) H 01/04/18 06:43 Plt Count 426 10^3/uL (150-400) H 01/04/18 06:43 MPV 8.8 fL (8.7-11.7) 01/04/18 06:43 Neut % (Auto) 74.0 % (39.3-74.2) 01/04/18 06:43 Lymph % (Auto) 16.9 % (15.0-45.0) 01/04/18 06:43 Brooke % (Auto) 6.6 % (4.5-13.0) 01/04/18 06:43 Eos % (Auto) 1.4 % (0.6-7.6) 01/04/18 06:43 Baso % (Auto) 0.8 % (0.3-1.7) 01/04/18 06:43 Nucleat RBC Rel Count 0.0 % (0.0-0.2) 01/04/18 06:43 Absolute Neuts (auto) 8.50 10^3/uL (1.70-6.50) H 01/04/18 06:43 Absolute Lymphs (auto) 1.94 10^3/uL (1.00-3.00) 01/04/18 06:43 Absolute Monos (auto) 0.76 10^3/uL (0.30-0.80) 01/04/18 06:43 Absolute Eos (auto) 0.16 10^3/uL (0.03-0.40) 01/04/18 06:43 Absolute Basos (auto) 0.09 10^3/uL (0.02-0.10) 01/04/18 06:43 Absolute Nucleated RBC 0.00 10^3/uL (0-0.01) 01/04/18 06:43 Immature Gran % 0.3 % (0.0-1.1) 01/04/18 06:43 Immature Gran # 0.04 10^3/uL (0.00-0.10) 01/04/18 06:43 PT 13.7 SEC (12.0-15.0) 01/04/18 11:23 INR 1.03 (0.83-1.16) 01/04/18 11:23 APTT 27.8 SEC (23.0-38.0) 01/04/18 11:23 Sodium 141 mEq/L (135-145) 01/04/18 06:20 Potassium 3.9 mEq/L (3.3-5.0) 01/04/18 06:20 Chloride 103 mEq/L (97-110) 01/04/18 06:20 Carbon Dioxide 24 mEq/l (22-31) 01/04/18 06:20 Anion Gap 14 mEq/L (8-16) 01/04/18 06:20 BUN 10 mg/dL (7-23) 01/04/18 06:20 Creatinine 0.6 mg/dL (0.6-1.0) 01/04/18 06:20 Estimated GFR > 60 01/04/18 06:20 Glucose 79 mg/dL (70-100) 01/04/18 06:20 Calcium 9.8 mg/dL (8.5-10.4) 01/04/18 06:20 Beta HCG, Qual NEGATIVE 01/04/18 06:20 Ethyl Alcohol < 10 mg/dL (0-10) 01/04/18 06:20 Assessment & Plan Assessment: Superior mesenteric vein thrombosis (Acute) - Unclear etiology. No known hypercoagulable state or h/o malignancy, though it is unclear why she had a john paul -colectomy. No e/o bowel ischemia. -anti-coagulate with heparin drip -send hypercoagulable panel, SHANKAR-2 -consider further malignancy workup, along with outpt cancer screening. Start with CXR given tobacco hx. -clear liquid diet advised for relative bowel rest, however pt refuses this and demands regular diet- agreed Ovarian cyst - she is pre-menopausal and this appears to be a simple cyst. HCG neg. Schizoaffective disorder - Stable -cont Chlorpromazime, Seroquel -Behavior health RN consult requested H/O polysubstance abuse -send drug screen Homelessness - CM consult Dispo - inpt, anticipate >48 hrs hospitalization for ongoing management of SMV thrombosis
[2018-01-04] MEDS: HYDROCODONE/APAP 5/325 TAB PO PRN (14:43)
[2018-01-04] MEDS ORDERED: QUEtiapine FUMARATE 300 MG TAB PO SCH ×2 (15:00→21:00)
--- NOTE | 2018-01-04 15:30 | PDMN ---
Medical Necessity Medical necessity: Pt meets IP criteria per MD; est los >2 mn for eval/tx of superior mesenteric vein thrombosis of unclear etiology; requiring further workup & Heparin drip; hx schizoaffective disorder, homelessness, polysubstance abuse; per H&P & order 01/04/18
[2018-01-04] MEDS: QUEtiapine FUMARATE 300 MG TAB PO SCH (15:45)
[2018-01-04 16:02] LABS: PLATELET COUNT 392 10^3/uL (150-400)
[2018-01-04] MEDS: FLUTICASONE HFA 110 MCG MDI IH SCH (21:08)
[2018-01-05] MEDS: CHLORPROMAZINE HCL 50 MG PO SCH ×3 (02:03→20:47)
[2018-01-05 02:30] LABS: PLATELET COUNT 305 10^3/uL (150-400)
[2018-01-05] MEDS: HEPARIN/DEXTROSE 500 ML IV SCH (06:20)
[2018-01-05] MEDS: FLUTICASONE HFA 110 MCG MDI IH SCH ×2 (09:53→21:27)
[2018-01-05] MEDS: ALBUTEROL 60 PUFFS/8 GM MDI IH PRN (09:54)
[2018-01-05] MEDS: HYDROCODONE/APAP 5/325 TAB PO PRN ×2 (10:03→14:54)
--- NOTE | 2018-01-05 11:53 | ASMTCMCOM ---
CM Note CM Note Notes: Spoke w/pt, she is homeless and stays at the [facility], will stay there at wa. CM to reserve a bed at discharge, she says she gets her medications at the [facility] in [place], and she goes to the [facility]. Pt was very sleepy during our conversation, dc needs unclear, CM w/f. Pt is otherwise independent. DC Plan: TBD Date Signed: 01/05/2018 11:52 AM Electronically Signed By:Nika Santo RN
--- NOTE | 2018-01-05 13:38 | HOSPPROG ---
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 No known hypercoagulable state or h/o malignancy, though it is unclear why she had a john paul -colectomy. No e/o bowel ischemia. -anti-coagulate with heparin drip, start Coumadin -send hypercoagulable panel, SHANKAR-2 -Obtain CT chest (will give fluids given contrast), consider further malignancy workup, along with outpt cancer screening. Ovarian cyst - she is pre-menopausal and this appears to be a simple cyst. HCG neg. Schizoaffective disorder - Stable -cont Chlorpromazime, Seroquel -Behavior health RN consult requested H/O polysubstance abuse -send drug screen, this is pending Homelessness - CM consult Dispo - inpt, anticipate >48 hrs hospitalization for ongoing management of SMV thrombosis. cont inpatient Subjective: no cp or sob. Abd pain is improving. Objective: Vital Signs Temp Pulse Resp BP Pulse Ox 36.4 C 95 20 104/59 L 89 L 01/05/18 11:06 01/05/18 11:06 01/05/18 11:06 01/05/18 11:06 01/05/18 11:06 Laboratory Results 01/05/18 01:45 01/04/18 01/05/18 01/06/18 05:59 05:59 05:59 Intake Total 210 Balance 210 PT 13.7 SEC (12.0-15.0) 01/04/18 11:23 INR 1.03 (0.83-1.16) 01/04/18 11:23 - Physical Exam Constitutional: no apparent distress Eyes: PERRL Ears, Nose, Mouth, Throat: moist mucous membranes, hearing normal Cardiovascular: regular rate and rhythym, No edema Respiratory: no respiratory distress, no rales or rhonchi, clear to auscultation Gastrointestinal: normoactive bowel sounds, No distension Skin: warm Musculoskeletal: full muscle strength Neurologic: AAOx3 Psychiatric: interacting appropriately Lymph, Heme, Immunologic: No petechiae ICD10 Worksheet Patient Problems: Problems Problem Status Onset Abdominal pain Acute Superior mesenteric vein thrombosis Acute Amphetamine dependence Active Acute bronchitis Acute Allergies to PROCHLORPERAZINE & PROMETHAZINE Acute Bronchitis Acute Bronchitis Acute Cannabis dependence Acute Hypoxia Acute Nicotine dependence Acute Obesity Acute Smoker Acute Suicidal ideation Acute
[2018-01-05] MEDS ORDERED: NS 1,000 ML IV SCH (13:45)
[2018-01-05] MEDS ORDERED: IOPAMIDOL (ISOVUE-300) 100 ML BTL ONE (13:46)
[2018-01-05] MEDS ORDERED: WARFARIN SODIUM 5 MG TAB PO ONE (16:00)
[2018-01-05] MEDS: QUEtiapine FUMARATE 300 MG TAB PO SCH (20:48)
[2018-01-06] MEDS: HEPARIN/DEXTROSE 500 ML IV SCH ×2 (00:20→20:28)
[2018-01-06 05:01] LABS: INR 0.91 (0.83-1.16); PROTIME(PATIENT) 12.5 SEC (12.0-15.0)
[2018-01-06] MEDS: HEPARIN 10,000 UNIT/10 ML MDV (1,000 UNIT/ML) IVP PRN ×2 (08:24→16:13)
[2018-01-06] MEDS: CHLORPROMAZINE HCL 50 MG PO SCH ×2 (08:28→20:37)
[2018-01-06] MEDS: HYDROCODONE/APAP 5/325 TAB PO PRN ×4 (08:32→22:38)
[2018-01-06] MEDS ORDERED: NS 1,000 ML IV ONE (08:40)
[2018-01-06] MEDS: FLUTICASONE HFA 110 MCG MDI IH SCH ×2 (08:45→21:36)
[2018-01-06 09:30] LABS: PLATELET COUNT 302 10^3/uL (150-400)
[2018-01-06] MEDS ORDERED: PROTOCOL MAGNESIUM 1 DOSE IV PRN (10:08)
[2018-01-06] MEDS ORDERED: PROTOCOL POTASSIUM 1 DOSE MISC PRN (10:08)
--- NOTE | 2018-01-06 10:14 | HOSPPROG ---
Hospitalist Progress Note Assessment/Plan: Hypotension: symptomatic -BP 85/55. Feels cold and weak. Afebrile. No recent leukocytosis. no labs yet today. No tachycardia -abd exam is reassuring, mild tenderness which as improved since admission. 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 No known hypercoagulable state or h/o malignancy, though it is unclear why she had a john paul -colectomy. No e/o bowel ischemia. She now reports that her mother of breast cancer in her late 30's. The patient has never received breast cancer screening -anti-coagulate with heparin drip, Coumadin -send hypercoagulable panel, SHANKAR-2 -CT chest and abd are c/w lobulated lesion along the inferior medial margin of the liver adjacent to previous right hemicolectomy. F/U US is recommended is 3-6 months. NOTE: her hemicolectomy was due to a SBO not a malignancy Ovarian cyst - she is pre-menopausal and this appears to be a simple cyst. HCG neg. Schizoaffective disorder - Stable -cont Chlorpromazime, Seroquel -Behavior health RN consult requested H/O polysubstance abuse -send drug screen, this is pending Homelessness - CM consult S/P right hemicolectomy due to SBO Dispo - inpt, anticipate >48 hrs hospitalization for ongoing management of SMV thrombosis. cont inpatient Plan: Per above It is unclear why the patient has become hypotensive as this is an acute drop in BP. I will provide her with IVF bolus and obtain stat labs. This was discussed with the nurse. At this point I dont seen any e/o acute bleed or infection. more reccs pending clinical course and w/u total critical care time spent on the mgmt of this pt with acute profound hypotension is 40 minutes Subjective: BP low. NO fever. no cp or sob. some abd pain but improving. no edema. no melena Objective: Vital Signs Temp Pulse Resp BP Pulse Ox 36.1 C 79 14 101/69 95 01/06/18 08:00 01/06/18 10:06 01/06/18 08:00 01/06/18 10:06 01/06/18 08:00 Laboratory Results 01/06/18 08:57 01/06/18 08:59 01/05/18 01/06/18 01/07/18 05:59 05:59 05:59 Intake Total 210 1238 Output Total 550 Balance 210 688 PT 12.5 SEC (12.0-15.0) 01/06/18 04:29 INR 0.91 (0.83-1.16) 01/06/18 04:29 - Physical Exam Constitutional: no apparent distress Eyes: PERRL Ears, Nose, Mouth, Throat: moist mucous membranes, hearing normal Cardiovascular: regular rate and rhythym, No edema Respiratory: no respiratory distress, no rales or rhonchi, clear to auscultation Gastrointestinal: normoactive bowel sounds, tenderness (mild generalized ttp), No distension Skin: warm Neurologic: AAOx3 Psychiatric: interacting appropriately, not anxious, not encephalopathic Lymph, Heme, Immunologic: No petechiae ICD10 Worksheet Patient Problems: Problems Problem Status Onset Abdominal pain Acute Superior mesenteric vein thrombosis Acute Amphetamine dependence Active Acute bronchitis Acute Allergies to PROCHLORPERAZINE & PROMETHAZINE Acute Bronchitis Acute Bronchitis Acute Cannabis dependence Acute Hypoxia Acute Nicotine dependence Acute Obesity Acute Smoker Acute Suicidal ideation Acute
[2018-01-06] MEDS ORDERED: POTASSIUM CL 10 MEQ TAB PO ONE (10:23)
[2018-01-06] MEDS ORDERED: WARFARIN SODIUM 7.5 MG TAB PO ONE (16:00)
[2018-01-06] MEDS: QUEtiapine FUMARATE 300 MG TAB PO SCH (22:39)
[2018-01-07 05:00] LABS: INR 1.32 (0.83-1.16); PROTIME(PATIENT) 16.6 SEC (12.0-15.0)
[2018-01-07] MEDS ORDERED: POTASSIUM CL 10 MEQ TAB PO ONE (07:56)
[2018-01-07] MEDS ORDERED: MAGNESIUM SULF 1 GM/DEXTROSE 100 ML IV ONE (08:08)
[2018-01-07] MEDS: CHLORPROMAZINE HCL 50 MG PO SCH ×2 (08:14→21:40)
[2018-01-07] MEDS: HYDROCODONE/APAP 5/325 TAB PO PRN ×3 (08:19→19:13)
--- NOTE | 2018-01-07 09:52 | HOSPPROG ---
Hospitalist Progress Note Assessment/Plan: 42 yo female admitted with abd pain and new diagnosis of SMV thrombosis. On Lovenox and Coumadin. BP cont to be soft but improved from yesterday, etiology is unclear. It does not appear infectious. Hgb has been stable. Hypotension: improved with IVF. Still soft. 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 No known hypercoagulable state or h/o malignancy. No e/o bowel ischemia. She reports that her mother of breast cancer in her late 30's. The patient has never received breast cancer screening -anti-coagulate with heparin drip, Coumadin. awaiting therapeutic INR -send hypercoagulable panel, SHANKAR-2 -CT chest and abd are c/w lobulated lesion along the inferior medial margin of the liver adjacent to previous right hemicolectomy. F/U US is recommended is 3-6 months. NOTE: her hemicolectomy was due to a SBO not a malignancy -breast cancer screening as an outpatient Ovarian cyst - she is pre-menopausal and this appears to be a simple cyst. HCG neg. Schizoaffective disorder - Stable -cont Chlorpromazime, Seroquel -Behavior health RN consult requested H/O polysubstance abuse -tox screen negative Homelessness - CM consult S/P right hemicolectomy due to SBO Dispo - inpt, anticipate >48 hrs hospitalization for ongoing management of SMV thrombosis. cont inpatient Subjective: no cp or sob. no n/v. still with mild abd pain, but improving Objective: Vital Signs Temp Pulse Resp BP Pulse Ox 36.4 C 79 16 107/69 96 01/07/18 03:42 01/07/18 07:43 01/07/18 07:43 01/07/18 07:43 01/07/18 07:43 Laboratory Results 01/06/18 08:57 01/07/18 04:25 01/06/18 01/07/18 01/08/18 05:59 05:59 05:59 Intake Total 1238 918 140 Output Total 550 Balance 688 918 140 PT 16.6 SEC (12.0-15.0) H 01/07/18 04:25 INR 1.32 (0.83-1.16) H 01/07/18 04:25 - Physical Exam Constitutional: no apparent distress Eyes: PERRL, EOMI Ears, Nose, Mouth, Throat: moist mucous membranes, hearing normal Cardiovascular: regular rate and rhythym, No edema Respiratory: no respiratory distress, no rales or rhonchi, clear to auscultation Gastrointestinal: normoactive bowel sounds, soft, non-tender abdomen, tenderness (mild generalized) Skin: warm Musculoskeletal: full muscle strength Neurologic: AAOx3 Psychiatric: interacting appropriately, not anxious, not encephalopathic Lymph, Heme, Immunologic: No petechiae ICD10 Worksheet Patient Problems: Problems Problem Status Onset Abdominal pain Acute Superior mesenteric vein thrombosis Acute Amphetamine dependence Active Acute bronchitis Acute Allergies to PROCHLORPERAZINE & PROMETHAZINE Acute Bronchitis Acute Bronchitis Acute Cannabis dependence Acute Hypoxia Acute Nicotine dependence Acute Obesity Acute Smoker Acute Suicidal ideation Acute
[2018-01-07] MEDS: FLUTICASONE HFA 110 MCG MDI IH SCH ×2 (09:55→21:59)
[2018-01-07] MEDS: HEPARIN/DEXTROSE 500 ML IV SCH (11:54)
[2018-01-07] MEDS ORDERED: WARFARIN SODIUM 5 MG TAB PO ONE (16:00)
[2018-01-07] MEDS ORDERED: MAGNESIUM HYDROXIDE 30 ML UDCUP PO PRN (20:14)
[2018-01-07] MEDS ORDERED: POLYETHYLENE GLYCOL 3350 17 GM PKT PO PRN (20:14)
[2018-01-07] MEDS ORDERED: LACTULOSE 20 GM/30 ML UDCUP PO PRN (20:14)
[2018-01-07] MEDS ORDERED: BISACODYL 10 MG SUPP PR PRN (20:14)
[2018-01-07] MEDS: SENNOSIDES/DOCUSATE SODIUM TAB PO SCH (21:40)
[2018-01-07] MEDS: QUEtiapine FUMARATE 300 MG TAB PO SCH (21:40)
[2018-01-08] MEDS: HYDROCODONE/APAP 5/325 TAB PO PRN ×2 (01:14→09:03)
[2018-01-08] MEDS: HEPARIN/DEXTROSE 500 ML IV SCH (01:57)
[2018-01-08 05:00] LABS: INR 2.22 (0.83-1.16); PROTIME(PATIENT) 24.6 SEC (12.0-15.0)
[2018-01-08 08:56] VITALS: BP 106/72
[2018-01-08] MEDS: CHLORPROMAZINE HCL 50 MG PO SCH (09:03)
[2018-01-08] MEDS: SENNOSIDES/DOCUSATE SODIUM TAB PO SCH (09:03)
[2018-01-08] MEDS: ALBUTEROL 60 PUFFS/8 GM MDI IH PRN (09:59)
[2018-01-08] MEDS: FLUTICASONE HFA 110 MCG MDI IH SCH (09:59)
--- NOTE | 2018-01-08 10:50 | ASMTDCNOTE ---
Case Management Discharge Discharge Order Complete? Answers: Yes Patient to Obtain Answers: Independently Medications Transportation Arranged Answers: Bus Tokens EMTALA Complete Answers: No Case Management Transport Answers: No Form Complete Faxed Final Orders Answers: No Agency/Facility Transfer Answers: No Report Printed & Faxed to Receiving Agency Family Notified Answers: No Discharge Comments Notes: CM spoke to Toma Barber NP regarding d/c POC. CM made pt a follow up appointment at [facility] for her INR to be checked. CM reserved the correction bed for pt. CM provided pt w/ a bus pass. No other needs identified at this time. CM available for changes. Plan: Independent Date Signed: 01/08/2018 10:49 AM Electronically Signed By:CHRIS Gaming
--- NOTE | 2018-01-08 10:51 | ASMTLACE ---
LACE Length of stay for Answers: 4-6 days current admission Acuity / Level of Answers: Yes Care: Did the patient have an inpatient admission? # of Emergency department Answers: 1-2 visits in the last 6 months Social determinants Answers: Homelessness (street, half-way) Mental health diagnosis (anxiety, depression, pers onality disorders, etc.) Score: 14 Date Signed: 01/08/2018 10:50 AM Electronically Signed By:CHRIS Gaming
[2018-01-08] MEDS ORDERED: WARFARIN SODIUM 3 MG TAB PO ONE (16:00)
--- NOTE | 2018-01-25 12:18 | GDS ---
[f rep st] DISCHARGE SUMMARY DISCHARGE DIAGNOSES: 1. Hypotension. 2. Superior mesenteric vein thrombus. 3. Ovarian cyst. 4. Schizoaffective disorder. 5. Polysubstance abuse. 6. Homeless. STUDIES/PROCEDURES: 1. CT of the abdomen. 2. Abdominal x-ray. 3. CT of the chest. PHYSICAL EXAMINATION: GENERAL: The patient is alert. VITAL SIGNS: Afebrile at 35.7, pulse is 78, respiratory rate 16, blood pressure is 106/72. She is saturating 95% on room air. I have seen evalu ated the patient on the day of discharge. HOSPITAL COURSE: The patient is a 42-year-old female who presented to the emergency room with compla ints of pain. She was evaluated and diagnosed with: 1. Superior mesenteric vein thrombus. The etiology of this is unclear. She has been anticoagulated during this hospitalization and transitioned to Coumadin. Her INR is therapeutic prior to dispositi on. We have arranged for her outpatient followup as best as possible. It is recommended that she salguero ve a followup ultrasound of her liver in 3-6 months. 2. Hypotension. This is resolved with IV fluid. 3. Ovarian cyst. This is stable. 4. Schizoaffective disorder. Her home medications have been continued. 5. Polysubstance abuse. Patient's tox screen is negative. 6. Homelessness. Case Management is assisting. DISPOSITION: The patient will be discharged today. She has a followup appointment at [facility] [address] for INR evaluation and medical management. [facility] appointment has been arranged for her o n 01/11/2018, at 9:20 in the a.m. PENDING STUDIES: Include coagulation. DISCHARGE MEDICATIONS: Please refer to EMR form. I have provided the patient a prescription for Cou madin at the time of disposition. I spent greater than 35 minutes in the care, coordination, and management of the patient's dispositio n. /[id number]/MODL
== END 2018-01-08 11:48 | disposition home or self-care (01) | DRG 279 ==
LOC: EDUNIT# → OBSVTOIN 11:49 → F3E 13:36
PROVIDERS: ADMIT Hospitalist; ATTEND Hospitalist
DX: I81 Portal vein thrombosis (principal); I95.9 Hypotension, unspecified; F25.9 Schizoaffective disorder, unspecified; R10.84 Generalized abdominal pain; N83.201 Unspecified ovarian cyst, right side; F17.210 Nicotine dependence, cigarettes, uncomplicated; Z59.0 Homelessness; F15.21 Other stimulant dependence, in remission
CPT/HCPCS: 80305; 81439-90; 85300-90; 85303-90; 85306-90; 85520-90; 86147-90; G0480; J1644; J3475; Q9967

== ENCOUNTER 2018-01-29 08:11 | Emergency (ER) | payer MEDICAID ==
[2018-01-29] MEDS ORDERED: NS 500 ML IV ONE (08:21)
--- NOTE | 2018-01-29 08:51 | EDPHY ---
H & P Time Seen by Provider: 01/29/18 08:30 HPI/ROS: HPI Vaginal bleeding. Back pain. 42-year-old female by [facility]. This patient has a history of schizoaffective disorder. She was recently seen in our emergency department and admitted to this hospital twice in early and mid December. She has a superior mesenteric vein thrombosis. She has had on menorrhagia and iron deficiency anemia. She has been noncompliant with her Coumadin. She reports that since her most recent discharge on January 11, despite significant effort from our case management team and hospitalist team, she did not fill her prescription for Coumadin 5 mg daily. She reports that she has had continued vaginal bleeding. She now presents to the emergency department with complaint of vaginal bleeding last night which was worse this morning and back pain. She was also to be put on Provera 10 mg daily for her dysfunctional uterine bleeding. She has not filled this prescription either. ROS: Constitutional: No fever, no chills. No weakness. Eyes: No discharge. No changes in vision. ENT: No sore throat. No nasal congestion or rhinorrhea. Respiratory: No cough. No shortness of breath. Cardiac: No chest pain, no palpitations. Gastrointestinal: No abdominal pain, no vomiting, no diarrhea. Genitourinary: As above. No hematuria. No dysuria or increased frequency with urination. Musculoskeletal: No back pain. No neck pain. No myalgias or arthralgias. Skin: No rashes. Neurological: No headache. No focal weakness or altered sensation. Past medical history: Superior mesenteric vein thrombosis, difficulties with Coumadin compliance, schizoaffective disorder, menorrhagia, iron deficiency anemia. As above. She currently is supposed to be taking iron supplements, Coumadin and Provera. She has been noncompliant with all of these medications. [facility] and [facility] Social history: Homeless. [facility]. Every day smoker. History of methamphetamine and marijuana abuse. Denies other IV drugs or street drugs. Admits to occasional alcohol intake. Physical Exam: General Appearance: Alert, no distress. This patient is responding to questions appropriately and in full sentences. This patient appears well- hydrated and well-nourished. Eyes: Pupils equal and round no pallor or injection. No lid edema, erythema or injection. Respiratory: There are no retractions, lungs are clear to auscultation with good air movement bilaterally. Cardiovascular: Regular rate and rhythm. No murmur. Gastrointestinal: Abdomen is soft and nontender, no masses, bowel sounds normal. No focal tenderness at McBurney's point. No Vallejo sign. Neurological: Motor sensory function is grossly intact. Cranial nerves are normal. Gait is normal. Skin: Warm and dry, no rashes. Musculoskeletal: Neck is supple and nontender. Extremities are symmetrical. All joints range without pain or impingement. Psychiatric: No agitation. No depression. Database: EKG: Imaging: Procedures: Emergency department course: Vital signs reviewed. Systolic blood pressure in the 90s. Her baseline appears to be 100-110 systolic. Her vital signs are otherwise normal. Her previous medical records were reviewed. IV was established. 8:55 a.m.. Spoke with the hospitalist. They are very familiar with this patient. We will repeat CT imaging to evaluate her SMV clot. The patient will be readmitted to the hospitalist service under the care of Dr. Herman for anticoagulation and selective occasion of an outpatient care plan. 9:[address] Herman. He is very familiar with this patient. He is asking that we hold her admission for the time being. He also feels strongly that she does not require repeat CT imaging. He is asking that we have [facility] evaluate her from a mental health standpoint to query whether she is gravely disabled and requires admission to a psychiatric facility. He is also asking that we have our case management team evaluate her here to fill her medications in the emergency department. He will work directly with these to parties. He gladly will accept this patient for admission if these actions are futile in providing her further care. 10:00 a.m., the patient has been seen by the hospitalist Dr. Herman. The patient is not acutely psychotic or gravely disabled. The plan will be to have her medications filled through our pharmacy. This will include a Xarelto starter pack, Provera 10 mg three times daily, and oxycodone 5 mg q.[address] Herman wrote these prescriptions. They will be filled by our protective services case worker and physically given to the patient. Follow-up will then be arranged for her to get a taxi voucher to [facility] to establish ongoing care. 11:00 a.m., the patient will be taken to the pharmacy by our protective services case worker. Her prescriptions will be filled there and she will be provided with transportation to to her [facility] follow-up appointment at 11:30 a.m.. The patient's remaining emergency department course under my care has been uneventful. Return to emergency department precautions have been thoroughly a discussed with her. All of her questions were answered. She was discharged in good condition. Differential Diagnosis: The differential diagnosis on this patient includes but is not limited to history of superior mesenteric vein thrombosis and noncompliance with Coumadin, . This represents a partial list of diagnoses considered. These considerations are based on history, physical exam, past history, reassessment and diagnostic testing. Smoking Status: Current every day smoker Constitutional: Initial Vital Signs Temperature (C) 36.6 C 01/29/18 08:13 Heart Rate 95 01/29/18 08:13 Respiratory Rate 18 01/29/18 08:13 Blood Pressure 96/86 H 01/29/18 08:13 O2 Sat (%) 98 01/29/18 08:13 O2 Delivery Mode Room Air Allergies/Adverse Reactions: prochlorperazine [From Compazine] Allergy (Verified 01/29/18 08:16) promethazine Allergy (Verified 01/29/18 08:16) Home Medications: Medication Instructions Recorded Albuterol [Proventil Inhaler HFA 1 - 2 puffs IH DAILY PRN 01/11/18 (*)] Benztropine Mesylate [Cogentin] 1 mg PO DAILY PRN 01/11/18 Fluticasone Hfa 110 Mcg [Flovent 1 puffs IH BID PRN 01/11/18 110 MCG Hfa MDI (*)] Ondansetron HCl [Zofran] 4 mg PO Q8HRS PRN 01/11/18 QUEtiapine FUMARATE [Seroquel 300 mg PO BID 01/11/18 300mg (*)] chlorproMAZINE HCL [Chlorpromazine 50 mg PO DAILY 01/11/18 HCl] chlorproMAZINE HCL [Chlorpromazine 100 mg PO HS 01/11/18 HCl] diphenhydrAMINE [Benadryl 25 MG 25 mg PO DAILY PRN 01/11/18 (*)] Ferrous Sulfate [Ferrous Sulf 325 325 mg PO BID #60 tab 01/22/18 MG (*)] Warfarin Sodium 5 mg PO DAILY #30 tablet 01/22/18 medroxyPROGESTERone [Provera 10 mg 10 mg PO TID #30 tab 01/22/18 (*)] Medical Decision Making - Data Points Laboratory Results: Laboratory Results 01/29/18 09:02 01/29/18 09:02 01/29/18 01/29/18 01/29/18 09:02 09:02 09:02 WBC RBC Hgb Hct MCV MCH MCHC RDW Plt Count MPV Neut % (Auto) Lymph % (Auto) [place] % (Auto) Eos % (Auto) Baso % (Auto) Nucleat RBC Rel Count Absolute Neuts (auto) Absolute Lymphs (auto) Absolute Monos (auto) Absolute Eos (auto) Absolute Basos (auto) Absolute Nucleated RBC Immature Gran % Immature Gran # Sodium 139 mEq/L mEq/L (135-145) Potassium 3.8 mEq/L mEq/L (3.3-5.0) Chloride 110 mEq/L mEq/L (97-110) Carbon Dioxide 21 mEq/l L mEq/l (22-31) Anion Gap 8 mEq/L mEq/L (8-16) BUN 12 mg/dL mg/dL (7-23) Creatinine 0.6 mg/dL mg/dL (0.6-1.0) Estimated GFR > 60 Glucose 88 mg/dL mg/dL (70-100) Calcium 9.0 mg/dL mg/dL (8.5-10.4) Beta HCG, Qual NEGATIVE Urine Color YELLOW Urine Appearance CLEAR Urine pH 5.0 (5.0-7.5) Ur Specific [place] 1.020 (1.002-1.030) Urine Protein NEGATIVE (NEGATIVE) Urine Ketones NEGATIVE (NEGATIVE) Urine Blood 2+ H (NEGATIVE) Urine Nitrate NEGATIVE (NEGATIVE) Urine Bilirubin NEGATIVE (NEGATIVE) Urine Urobilinogen NEGATIVE EU EU (0.2-1.0) Ur Leukocyte Esterase NEGATIVE (NEGATIVE) Urine RBC 1-3 /hpf /hpf (0-3) Urine WBC 1-3 /hpf /hpf (0-3) Ur Epithelial Cells TRACE /lpf /lpf (NONE-1+) Urine Bacteria TRACE /hpf H /hpf (NONE SEEN) Urine Mucus TRACE /lpf /lpf (NONE-1+) Urine Glucose NEGATIVE (NEGATIVE) 01/29/18 09:02 WBC 9.22 10^3/uL 10^3/uL (3.80-9.50) RBC 3.68 10^6/uL L 10^6/uL (4.18-5.33) Hgb 10.4 g/dL L g/dL (12.6-16.3) Hct 32.1 % L % (38.0-47.0) MCV 87.2 fL fL (81.5-99.8) MCH 28.3 pg pg (27.9-34.1) MCHC 32.4 g/dL g/dL (32.4-36.7) RDW 18.0 % H % (11.5-15.2) Plt Count 562 10^3/uL H 10^3/uL (150-400) MPV 8.3 fL L fL (8.7-11.7) Neut % (Auto) 72.3 % % (39.3-74.2) Lymph % (Auto) 14.1 % L % (15.0-45.0) [place] % (Auto) 8.1 % % (4.5-13.0) Eos % (Auto) 3.8 % % (0.6-7.6) Baso % (Auto) 1.2 % % (0.3-1.7) Nucleat RBC Rel Count 0.0 % % (0.0-0.2) Absolute Neuts (auto) 6.66 10^3/uL H 10^3/uL (1.70-6.50) Absolute Lymphs (auto) 1.30 10^3/uL 10^3/uL (1.00-3.00) Absolute Monos (auto) 0.75 10^3/uL 10^3/uL (0.30-0.80) Absolute Eos (auto) 0.35 10^3/uL 10^3/uL (0.03-0.40) Absolute Basos (auto) 0.11 10^3/uL H 10^3/uL (0.02-0.10) Absolute Nucleated RBC 0.00 10^3/uL 10^3/uL (0-0.01) Immature Gran % 0.5 % % (0.0-1.1) Immature Gran # 0.05 10^3/uL 10^3/uL (0.00-0.10) Sodium Potassium Chloride Carbon Dioxide Anion Gap BUN Creatinine Estimated GFR Glucose Calcium Beta HCG, Qual Urine Color Urine Appearance Urine pH Ur Specific [place] Urine Protein Urine Ketones Urine Blood Urine Nitrate Urine Bilirubin Urine Urobilinogen Ur Leukocyte Esterase Urine RBC Urine WBC Ur Epithelial Cells Urine Bacteria Urine Mucus Urine Glucose Medications Given: Discontinued Medications Sodium Chloride (Ns) 500 mls @ 0 mls/hr IV ONCE ONE; Wide Open PRN Reason: Protocol Stop: 01/29/18 08:22 Last Admin: 01/29/18 09:03 Dose: 500 mls Departure - Departure Disposition: [facility] Acute Clinical Impression: Noncompliance with medication regimen, Dysfunctional uterine bleeding, Iron (Fe ) deficiency anemia, Superior mesenteric vein thrombosis Condition: Good Instructions: Dysfunctional Uterine Bleeding (ED), Blood Thinners (ED) Additional Instructions: Read and follow provided instructions. Follow-up with [facility] as arranged by your protective services case worker. Take medication as prescribed. It is very important you take your medications on a regular basis and as prescribed. Return to the emergency department for worsening symptoms, worsening vaginal bleeding, worsening abdominal pain, fever or other serious concerns. Referrals: [facility],. [Clinic] - As per Instructions [facility]. [Clinic] - As per Instructions
[2018-01-29 09:18] LABS: PLATELET COUNT 562 10^3/uL (150-400)
[2018-01-29 10:45] VITALS: BP 115/70
--- NOTE | 2018-01-29 14:57 | ASMTCMCOM ---
CM Note CM Note Notes: Pt presented to the ED via EMS for vaginal bleeding and back pain. Pt was recently discharged from [facility] 01/22/18 and pt states she has not followed up with [facility] and has also not filled the prescriptions she was provided. Pt sanchez been staying at the [facility] "for 3 years" and "I keep getting bumped on the list for housing." Please see past CM Assessment Reports and also Behavioral Health RN Nika Fernandez's Note 01/15/18 for additional background info. CM was requested to assist w/filling pt's medications: Xarelto, Provera, and Oxycodone by filling them through pt's Medicaid at [facility]. Pt was becoming restless and wanting to leave because she said she had an appt w/[facility] at 11:30am. This CM spoke w/her and was able to convince patient to stay and wait for the prescriptions. Eventually, CM was able to fill the Oxycodone through pt's Medicaid ($0 co-pay) and Provera ( the ~$15 co-pay was covered by CM; Medicaid wouldn't cover this Rxn until tomorrow because pt already had it filled recently(?). These filled prescriptions were provided to the patient. did not have any Xarelto [facility] discount cards so CM called Xarelto's main # and was able to have them activate a free 30-day trial card for the patient (ID#, BIN#, Group# provided to [facility]). [facility] did not have any Xarelto starter packs in stock. Per the pharmacist, if the Rxn was written and dispensed in the traditional 21-day and 7-day dosing, pt would only be able to get the 21-day Rxn filled today because Medicaid would not cover the 2nd 7-day Rxn (to be filled at the same time; & pt is not reliable to get it filled when that time comes either). This CM spoke w/ the hospitalist Dr Herman and discussed switching Rxn to Eliquis which he said would be fine. Unfortunately, there are no pharmacies in [place] ([facility], [facility], [facility], [facility], etc.) that have Xarelto or Eliquis starter packs in stock. Ultimately, this CM submitted the Xarelto Rxn to [facility] and they said they will order a starter pack to be delivered tomorrow. This CM to follow-up tomorrow and assist w/delivery of starter pack to patient or [facility]. Pt was provided a cab voucher to [facility] for her [facility] appt. This CM called [facility] but was unable to get through to anyone. Spoke w/Alee RN at [facility] at [facility]. Alee said she spoke w/ [facility] front man and confirmed that patient did not have an appt today but pt has an appt on 02/07/18 to complete an initial assessment and potentially get re-established w/[facility] (pt had been discharged due to non-compliance and not showing up to appts). Alee says she tried to speak to patient while she was in the waiting area at [facility] but the patient would not engage in conversation and wandered off and left their premises. Alee says she will send pt's PCP Roxana Holden a message re:update and will continue to reach out to patient and try to get her to follow up (pt does have an appt w/Roxana on 02/06/18). Alee also said pt had mentioned she was there to "roller picker my money" from [employer]oma, a payee there at the [facility]. Alee says she will notify Toma that when pt shows up for her money to please have pt connect with PC. Pt doesn't have a cell phone. Pt states she sometimes stays w/her boyfriend, Bill or "[place]" ([phone]) but that she hasn't been in touch w/him for awhile. Pt did say we could call and leave a message for her at that # but "he'll probably just throw it away." Pt doesn't have an e-mail address. When asked if she has any other family or friends in the area, pt responded "I wouldn't want to subject myself to them anyway." Per chart review, a referral to [facility] was already made during last admission. CM to follow up tomorrow re: getting Xarelto Rxn to the patient. Date Signed: 01/29/2018 02:53 PM Electronically Signed By:Mariama Hernandez RN
--- NOTE | 2018-01-29 19:40 | PDCONSULT ---
Keg Header Note: Primary care provider: [facility] [address] [facility] Primary mental health: [facility] Chief complaint: Acute menorrhagia HPI: 42-year-old female presenting with acute menorrhagia characterized as heavy vaginal bleeding with associated abdominal pain located diffusely throughout the abdomen resulting in increased anxiety and distress. Patient reports that the onset of the symptoms was a couple months ago and duration has been persistent thereafter. She reports that the symptoms continued following her most recent hospitalization and discharge 1 week ago. She is unable to quantify whether there has been any escalation, but the patient reports that she has been changing pads and they remain bloody. She reports that she is currently using a tampon. The patient reports that she did not fill any of her medications after her most recent discharge, as she reports she went to the [facility] in [place] and she was told that they did not have any medications scripts for her. I am unable to see in our system which pharmacy received the patient's medication electronic prescriptions. 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 Review of systems: Abdominal pain, menorrhagia, anxiety, all other 10 point review systems otherwise negative Past medical history: Schizophrenia, superior mesenteric vein thrombosis, anxiety, reactive airway disease, ovarian cyst Past surgical history: , hemicolectomy, deviated septum, right 5th digit Social history: Tobacco use regularly, history of meth and THC, occasional alcohol, homeless Family history: No family history of venous thromboembolism Allergies: Reglan unknown reaction Physical exam: Systolic blood pressure 96, heart rate 95, respirations 18, O2 sat 98% on room air, temperature 36.6 degrees Generally-alert awake oriented x3, no apparent distress, pain level is currently 0/10 Neuro-motor strength 5/5 bilateral lower extremities, facial symmetry, sensation intact in the bilateral lower extremities Psych-poor eye contact, easily distressed, concentration 7/7, ongoing background auditory hallucinations but not expressing any commands, no homicidal ideation, no suicidal ideation Eyes-normal conjunctiva, extraocular movements intact ENT-moist mucous membranes, no wet purpura Respiratory-lungs are clear to auscultation bilaterally without any crackles or wheezes Cardiac-regular rate and rhythm, no murmurs rubs or gallops appreciated Gastrointestinal-abdomen is mildly tender to moderate palpation in the left mid abdomen without any rebound or guarding, bowel sounds are present Skin-stretch costello on abdomen, no rashes or ecchymoses Data: hemoglobin 10.4, platelets [id number], creatinine 0.6, test negative Outside records-discharge summary by Dr. Yenny Martin from 01/22 reports that the patient was discharged with 10 subsequent days of Provera 10 mg 3 times daily per recommendations from gynecology for likely sandrine menopausal bleeding for which the patient declined all other interventions, iron therapy 325 twice daily, warfarin 5 mg daily, discharge INR 1.6, discharge hemoglobin 9.5 Imaging-01/11 CT of the abdomen demonstrating stable SMV thrombosis, right upper quadrant nodule, vaginal ultrasound demonstrating right-sided ovarian cyst likely benign 3.7 cm Assessment: 42-year-old female presenting with acute, recurrent menorrhagia and abdominal pain Plan: 1. Menorrhagia. Acute, new problem this provider, further workup indicated. Suspect that this is most likely secondary to sandrine menopausal bleeding which was the definitive conclusion from our gynecology colleagues during the patient' s most recent episode of care and a transvaginal ultrasound demonstrated no insidious fibroids, but only a benign right-sided ovarian cyst -checking hemoglobin right now and if greater than or equal to previous hemoglobin level of 9.5, then the patient's ongoing menorrhagia is not clinically significant as her systolic blood pressure is currently stable -discussed with nurse, she has evaluated the patient in the restroom and removed old and then reinserted a new tampon, and she reports no significant blood other than a small amount on the tampon, no evidence of sandrine vaginal bleeding -during the last episode of care, gynecology spent a considerable amount of time offering the patient acceptable methods of controlling menorrhagia, and the patient declined all of them, with the exception of rising 10 days of high- dose Provera -given that the patient did not fill her script after the most recent hospitalization, she is not a Provera failure, but rather non adherent -discussed with case management emergency department as well as Dr. Haritha Jones, we all agree that the patient should be provided with medication in hand at discharge this time so that she is a quit for success and will provide her with Provera 10 mg 3 times daily for 10 subsequent days, 30 tabs provided -her outpatient providers at [facility] may elect to continue oral iron therapy, and this would certainly be reasonable, we have not advocated for this during this emergency department encounter so as not to confuse the patient but it may be reasonable moving forward 2. Abdominal pain. Acute, most likely secondary to symptomatic SMV thrombosis which is currently not being treated by the patient due to her medical non adherence -I do not recommend additional abdominal imaging at this time as her abdominal exam is benign and her white blood cell count is normal -discussed with Dr. Haritha Jones, we considered Lovenox bridging therapy and Coumadin, but this added later of complexity in order to ensure medical adherence may be more than what the patient is able to manage -consequently, would recommend DOAC -due to medication shortage at our pharmacy as well as all local pharmacies, we are unable to physically secure Xarelto or Eliquis at this time outside of providing at from our inpatient pharmacy -case management has been able to secure the patient with 1 dose of Xarelto at this time and then will follow up with the patient and [facility] tomorrow a.m. To ensure that we are able to physically get Xarelto to the patient 3. Schizophrenia. Chronic, patient does not currently demonstrate evidence of being gravely disabled although her underlying mental health issues are certainly factoring into her decisions which render her medically non adherent -at the present time I do not see any value in placing the patient on an M1 hold or having a TLC evaluation as she is clearly not gravely disabled -that being said, the patient will be triaged to [facility] for outpatient mental health follow-up immediately after discharge from the emergency department, so they can continue to work with the patient to optimize her mental health and social situation Due to the complexities of the patient's underlying mental health as well as her medical conditions, I fully anticipate the patient will most likely re- presented this emergency department for similar complaints in the future, and I recommend that subsequent providers continue to consider the strategies that have already been attempted as well as continuing to attempt to manage this patient in the outpatient setting as the inpatient setting has repeatedly demonstrated no added value to the patient's current situation.
--- NOTE | 2018-01-30 19:32 | ASMTCMCOM ---
CM Note CM Note Notes: Received the Xarelto starter pack from Bernarda at [facility]. Followed up with MEHDI Vickers ([phone]) at [facility] and this CM delivered the started pack to Alee today. Alee states she will keep an eye for the patient and hopefully get her the Rxn soon. Alee will also send Lexi [facility] RN at , a message re: keeping an eye out for the patient at [facility] and try to get her the Rxn and a follow-up appt at . CM available for further assistance if needed. Date Signed: 01/30/2018 07:31 PM Electronically Signed By:Mariama Hernandez RN
== END 2018-01-29 11:14 | disposition still patient (30) ==
LOC: EDUNIT#
DX: N93.9 Abnormal uterine and vaginal bleeding, unspecified (principal); M54.9 Dorsalgia, unspecified; E86.9 Volume depletion, unspecified; F25.9 Schizoaffective disorder, unspecified; F17.200 Nicotine dependence, unspecified, uncomplicated; Z59.0 Homelessness; Z79.01 Long term (current) use of anticoagulants; Z91.14 Patient's other noncompliance with medication regimen; Z86.718 Personal history of other venous thrombosis and embolism

== ENCOUNTER 2018-03-06 03:22 | Emergency (ER) | payer MEDICAID ==
[2018-03-06] MEDS ORDERED: LIDOCAINE 2% VISCOUS 15 ML UDCUP PO ONE (03:30)
[2018-03-06] MEDS ORDERED: MAG HYDROX/AL HYDROX/SIMETH 30 ML UDCUP PO ONE (03:30)
[2018-03-06] MEDS ORDERED: HYOSCYAMINE SULFATE 0.125 MG TAB PO ONE (03:30)
--- NOTE | 2018-03-06 03:42 | EDPHY ---
H & P Stated Complaint: upper abd pain for 4 days Time Seen by Provider: 03/06/18 03:39 HPI/ROS: HPI CHIEF COMPLAINT: Abdominal pain x4 days. HISTORY OF PRESENT ILLNESS: 42-year-old female presents emergency room by EMS from the homeless residential with abdominal pain. She reports that her abdominal pain is located in her epigastric region x4 days. Of note history and review of systems somewhat limited due the patient's screaming the F word at all of us. Over and over again. However she presents emergency room by EMS for abdominal pain epigastric she describes as sharp stabbing. Nonstop constant. Nausea but no vomiting. Denies chest pain or shortness of breath. Suppose to be on Coumadin. Patient distally reports bad burning pain in her epigastric region. She states "I have too much stomach acid" Past Medical History: History of the superior mesenteric vein thrombosis, hypertension, schizophrenia, polysubstance abuse, ovarian cyst Past Surgical History: No recent surgery Social History: Homeless. History polysubstance abuse. Family History: Noncontributory ROS REVIEW OF SYSTEMS: Limited. Limited due to patient's mental state and screaming Exam Constitutional screaming, triage nursing summary reviewed, vital signs reviewed , awake/alert. Eyes normal conjunctivae and sclera, EOMI, PERRLA. HENT normal inspection, atraumatic, moist mucus membranes, no epistaxis, neck supple/ no meningismus, no raccoon eyes. Respiratory clear to auscultation bilaterally, normal breath sounds, no respiratory distress, no wheezing. Cardiovascular rate normal, regular rhythm, no murmur, no edema, distal pulses normal. Gastrointestinal nontender palpation epigastric, no rebound, no guarding, normal bowel sounds, no distension, no pulsatile mass. Genitourinary no CVA tenderness. Musculoskeletal no midline vertebral tenderness, full range of motion, no calf swelling, no tenderness of extremities, no meningismus, good pulses, neurovascularly intact. Skin pink, warm, & dry, no rash, skin atraumatic. Neurologic awake, alert and oriented x 3, AAOx3, moves all 4 extremities equally, motor intact, sensory intact, CN II-XII intact, normal cerebellar, normal vision, normal speech. Psychiatric normal mood/affect. Heme/Lymph/Immune no lymphadenopathy. Differential diagnosis includes but is not limited to and in no particular order : SMV thrombosis, Bowel obstruction, appendicitis, gallbladder disease, diverticulitis, colitis, enteritis, perforated viscus, gastritis, GERD, esophagitis, urinary tract infection, pyelonephritis, kidney stones Medical Decision Making: Plan for this patient IV establishment, GI cocktail for pain control, EKG, troponin, lactic acid, basic blood work, check INR and re -evaluate. Re-evaluation: EKG interpretation by me on record in [employer] system. Impression time of EKG 3:41 a.m., sinus tach 100, otherwise no acute ischemia no ST elevation no ST depression no T-wave abnormalities. 0400: Patient screaming and cursing at medical staff. 2 mg IV Ativan as ordered. 0433: Troponin noted to be 0.00. EKG nonischemic. Patient pending CT abdomen pelvis with IV contrast at this time. CT scan abdomen pelvis with IV contrast is negative for any acute abnormality stable SMV clot. No acute inflammatory process seen. Dr. Garza. 0527: Patient re-evaluated she is resting comfortably no acute distress. CT scan was reviewed shows no acute inflammatory process. Feeling better after Ativan and GI cocktail. 0653: Patient re-evaluated this time she has been sleeping here in the emergency room and states she does feel much better. When she arrived here she was screaming and cursing at medical staff. She received IV Ativan and IV fluids she had a CT scan of her abdomen pelvis that did not show any acute new abnormality she has a known SMV thrombus. Unchanged. No acute inflammatory findings on C T. Troponin noted to be negative. EKG nonischemic. She does not have any chest pain. I did go re-evaluate her at 7:00 a.m. She is resting comfortably in feels comfortable she is asking to drink something. Will p.o. Challenge. If tolerates p.o. Challenge I believe she can be safely discharged from the emergency room. Return precautions discussed with her she understands return emergency room if develops worsening abdominal pain fever or vomiting. - Personal History LMP (Females 10-55): 22-28 Days Ago Current Tetanus/Diphtheria Vaccine: Yes Current Tetanus Diphtheria and Acellular Pertussis (TDAP): Yes Tetanus Vaccine Date: <10 years - Medical/Surgical History Hx Asthma: No Hx Chronic Respiratory Disease: Yes Hx Diabetes: No Hx Cardiac Disease: Yes Hx Renal Disease: No Hx Cirrhosis: No Hx Alcoholism: No Hx HIV/AIDS: No Hx Splenectomy or Spleen Trauma: No Other PMH: PMHx: Schizoaffective disorder, anxiety, depression, polysubstance abuse, PTSD, bipolar disorder, back problem, palpitations;uses meth/etoh;C- SECTIONS X2 - Social History Smoking Status: Current every day smoker Constitutional: Initial Vital Signs Temperature (C) 36.9 C 03/06/18 03:30 Heart Rate 96 03/06/18 03:30 Respiratory Rate 16 03/06/18 03:30 Blood Pressure 129/75 H 03/06/18 03:30 O2 Sat (%) 97 03/06/18 03:30 O2 Delivery Mode Room Air Allergies/Adverse Reactions: prochlorperazine [From Compazine] Allergy (Verified 03/06/18 03:31) promethazine Allergy (Verified 03/06/18 03:31) Home Medications: Medication Instructions Recorded QUEtiapine FUMARATE [Seroquel 300 mg PO BID 01/11/18 300mg (*)] Thorazine (*) 03/06/18 Medical Decision Making - Data Points Laboratory Results: Laboratory Results 03/06/18 03:45 03/06/18 03:45 03/06/18 03/06/18 03/06/18 03:49 03:45 03:45 WBC RBC Hgb Hct MCV MCH MCHC RDW Plt Count MPV Neut % (Auto) Lymph % (Auto) [place] % (Auto) Eos % (Auto) Baso % (Auto) Nucleat RBC Rel Count Absolute Neuts (auto) Absolute Lymphs (auto) Absolute Monos (auto) Absolute Eos (auto) Absolute Basos (auto) Absolute Nucleated RBC Immature Gran % Immature Gran # PT INR APTT VBG Lactic Acid 1.6 mmol/L mmol/L (0.7-2.1) Sodium Potassium Chloride Carbon Dioxide Anion Gap BUN Creatinine Estimated GFR Glucose Calcium Total Bilirubin Conjugated Bilirubin Unconjugated Bilirubin AST ALT Alkaline Phosphatase POC Troponin I 0.00 ng/mL ng/mL (0.00-0.08) Total Protein Albumin Lipase Beta HCG, Qual NEGATIVE 03/06/18 03/06/18 03/06/18 03:45 03:45 03:30 WBC 6.90 10^3/uL 10^3/uL (3.80-9.50) RBC 4.38 10^6/uL 10^6/uL (4.18-5.33) Hgb 11.2 g/dL L g/dL (12.6-16.3) Hct 35.9 % L % (38.0-47.0) MCV 82.0 fL fL (81.5-99.8) MCH 25.6 pg L pg (27.9-34.1) MCHC 31.2 g/dL L g/dL (32.4-36.7) RDW 17.2 % H % (11.5-15.2) Plt Count 452 10^3/uL H 10^3/uL (150-400) MPV 8.5 fL L fL (8.7-11.7) Neut % (Auto) 68.2 % % (39.3-74.2) Lymph % (Auto) 17.7 % % (15.0-45.0) [place] % (Auto) 8.8 % % (4.5-13.0) Eos % (Auto) 3.3 % % (0.6-7.6) Baso % (Auto) 1.7 % % (0.3-1.7) Nucleat RBC Rel Count 0.0 % % (0.0-0.2) Absolute Neuts (auto) 4.70 10^3/uL 10^3/uL (1.70-6.50) Absolute Lymphs (auto) 1.22 10^3/uL 10^3/uL (1.00-3.00) Absolute Monos (auto) 0.61 10^3/uL 10^3/uL (0.30-0.80) Absolute Eos (auto) 0.23 10^3/uL 10^3/uL (0.03-0.40) Absolute Basos (auto) 0.12 10^3/uL H 10^3/uL (0.02-0.10) Absolute Nucleated RBC 0.00 10^3/uL 10^3/uL (0-0.01) Immature Gran % 0.3 % % (0.0-1.1) Immature Gran # 0.02 10^3/uL 10^3/uL (0.00-0.10) PT 13.3 SEC SEC (12.0-15.0) INR 0.99 (0.83-1.16) APTT 25.5 SEC SEC (23.0-38.0) VBG Lactic Acid Sodium 141 mEq/L mEq/L (135-145) Potassium 3.7 mEq/L mEq/L (3.3-5.0) Chloride 107 mEq/L mEq/L (97-110) Carbon Dioxide 22 mEq/l mEq/l (22-31) Anion Gap 12 mEq/L mEq/L (8-16) BUN 6 mg/dL L mg/dL (7-23) Creatinine 0.7 mg/dL mg/dL (0.6-1.0) Estimated GFR > 60 Glucose 116 mg/dL H mg/dL (70-100) Calcium 8.5 mg/dL mg/dL (8.5-10.4) Total Bilirubin 0.5 mg/dL mg/dL (0.1-1.4) Conjugated Bilirubin 0.2 mg/dL mg/dL (0.0-0.5) Unconjugated Bilirubin 0.3 mg/dL mg/dL (0.0-1.1) AST 21 IU/L IU/L (14-46) ALT 26 IU/L IU/L (9-52) Alkaline Phosphatase 139 IU/L H IU/L (38-126) POC Troponin I Total Protein 6.9 g/dL g/dL (6.3-8.2) Albumin 3.9 g/dL g/dL (3.5-5.0) Lipase 73 IU/L IU/L (23-300) Beta HCG, Qual Medications Given: Discontinued Medications Al Hydroxide/Mg Hydroxide (Maalox Susp) 30 ml PO ONCE ONE Stop: 03/06/18 03:31 Last Admin: 03/06/18 03:47 Dose: 30 ml Hyoscyamine Sulfate (Levsin, Hyomax-Sl) 0.25 mg PO ONCE ONE Stop: 03/06/18 03:31 Last Admin: 03/06/18 03:46 Dose: 0.25 mg Lidocaine (Lidocaine 2% Viscous) 15 ml PO ONCE ONE Stop: 03/06/18 03:31 Last Admin: 03/06/18 03:46 Dose: 15 ml Lorazepam (Ativan Injection) 2 mg IVP EDNOW ONE Stop: 03/06/18 03:57 Last Admin: 03/06/18 03:59 Dose: 2 mg Point of Care Test Results: Chemistry 03/06/18 03:49 POC Troponin I 0.00 ng/mL ng/mL (0.00-0.08) Departure - Departure Disposition: Home, Routine, Self-Care Clinical Impression: Abdominal pain Qualifiers: Abdominal location: unspecified location Qualified Code(s): R10.9 - Unspecified abdominal pain Condition: Good Instructions: Acute Abdominal Pain (ED) Additional Instructions: Return to the emergency room if develops worsening abdominal pain, fever, vomiting. Referrals: Roxana Holden, PAC [Primary Care Provider] - As per Instructions
[2018-03-06] MEDS ORDERED: LORazepam 2 MG/ML INJ IVP ONE (03:56)
[2018-03-06] MEDS ORDERED: LORazepam 2 MG/ML INJ ONE (03:57)
[2018-03-06 04:01] LABS: PLATELET COUNT 452 10^3/uL (150-400)
[2018-03-06] MEDS ORDERED: IOPAMIDOL (ISOVUE-300) 100 ML BTL ONE (04:16)
[2018-03-06 04:43] LABS: INR 0.99 (0.83-1.16); PROTIME(PATIENT) 13.3 SEC (12.0-15.0)
[2018-03-06] MEDS ORDERED: ONDANSETRON 4 MG/2 ML VIAL IVP ONE (06:59)
[2018-03-06 07:18] VITALS: BP 120/64
--- NOTE | 2018-03-07 23:08 | CPEKG ---
Test Reason : OPEN Blood Pressure : / mmHG Vent. Rate : 100 BPM Atrial Rate : 101 BPM P-R Int : 148 ms QRS Dur : 073 ms QT Int : 369 ms P-R-T Axes : 088 069 072 degrees QTc Int : 476 ms Sinus tachycardia Low voltage, precordial leads Confirmed by Rex Bonilla ([id number]) on 03/07/2018 11:08:11 PM Referred By: Confirmed By:Rex Bonilla
== END 2018-03-06 07:15 | disposition home or self-care (01) ==
LOC: EDUNIT#
DX: R10.9 Unspecified abdominal pain (principal); I10 Essential (primary) hypertension; F20.9 Schizophrenia, unspecified; F17.200 Nicotine dependence, unspecified, uncomplicated
CPT/HCPCS: 84484-PO; 96374; J2060; J2405; Q9967

== ENCOUNTER 2018-12-11 07:34 | Emergency (ER) | payer MEDICAID | END 2018-12-11 12:16 | disposition home or self-care (01) ==

== ENCOUNTER 2018-12-25 06:05 | Emergency (ER) | payer MEDICAID | END 2018-12-25 08:51 | disposition home or self-care (01) ==